=== PATIENT | male | born 1970 | race Caucasian/White ===

== ENCOUNTER 2019-11-02 05:30 | Inpatient (IN) | payer SELFPAY ==
[~2019-11-02] VITALS: Ht 165.1 cm; Wt 85.3 kg
[2019-11-02] VITALS (28 sets, daily range): BP systolic 110–155; BP diastolic 55–81
[2019-11-02] MEDS ORDERED: ATROPINE 0.5 MG/5 ML DISP.SYRINGE. ONE (05:55)
[2019-11-02] MEDS ORDERED: PHENYLEPHRINE 10 MG/ML VIAL. ONE (05:55)
[2019-11-02] MEDS ORDERED: TIROFIBAN 5MG -0.9% NS 100 ML IV ONE (05:58)
[2019-11-02] MEDS: TIROFIBAN 5MG -0.9% NS 100 ML IV PRN ×4 (06:03→20:36)
[2019-11-02] MEDS ORDERED: ONDANSETRON PF 4 MG/2 ML VIAL. ONE (06:12)
[2019-11-02] MEDS ORDERED: HEPARIN for IV BOLUS 10,000 UNIT/10 ML VIAL. IV ONE (06:15)
[2019-11-02] MEDS ORDERED: VERAPAMIL 5 MG/2 ML VIAL. IART ONE (06:15)
[2019-11-02] MEDS ORDERED: MIDAZOLAM HCL/PF 2 MG/2 ML VIAL. IV ONE (06:15)
[2019-11-02] MEDS ORDERED: IODIXANOL 320 MG/ML 100 ML VIAL. IART ONE (06:15)
[2019-11-02] MEDS ORDERED: LIDOCAINE 1% Multi-Dose 20 ML VIAL. INJ ONE (06:15)
[2019-11-02] MEDS ORDERED: HEPARIN for IV BOLUS 10,000 UNIT/10 ML VIAL. IART ONE (06:15)
[2019-11-02] MEDS ORDERED: NITROGLYCERIN 200 MCG/2 ML SYRINGE FOR CATH/VASC LAB. IART ONE ×2 (06:15→06:30)
[2019-11-02] MEDS ORDERED: fentaNYL PF VIAL 100 MCG/2 ML VIAL IV ONE ×2 (06:15→06:45)
[2019-11-02] MEDS ORDERED: NITROGLYCERIN 200 MCG/2 ML SYRINGE FOR CATH/VASC LAB. ONE (06:22)
[2019-11-02] MEDS ORDERED: IODIXANOL 320 MG/ML 100 ML VIAL. ONE (06:25)
[2019-11-02] MEDS ORDERED: ONDANSETRON PF 4 MG/2 ML VIAL. IVP ONE (06:30)
[2019-11-02] MEDS ORDERED: fentaNYL PF VIAL 100 MCG/2 ML VIAL ONE (06:35)
[2019-11-02] MEDS ORDERED: PRASUGREL 10 MG TABLET. PO ONE (06:45)
[2019-11-02] MEDS ORDERED: PRASUGREL 10 MG TABLET. ONE (06:52)
--- NOTE | 2019-11-02 07:15 | NUR ---
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 On aggrastat and rec'd effient there. Pt A/O denies any CP or SOA. VSSx HR 60. Occ PVC. No family here. Rt TRband intact 15cc. Sm amt ooze noticed by tutorial laboratory supervisor so air increased to 15cc. Will cont TRband protocol.
[2019-11-02] MEDS ORDERED: OMEP20CA16 PO (07:30)
[2019-11-02] MEDS ORDERED: ACETAMINOPHEN 325 MG TABLET. PO PRN ×2 (07:45→10:15)
[2019-11-02] MEDS ORDERED: ONDANSETRON PF 4 MG/2 ML VIAL. IV PRN (07:45)
--- NOTE | 2019-11-02 09:05 | PDOC1 ---
History and Physical Date of Admission Date of Admission DATE: 11/02/19 TIME: 09:04 Identification/Chief Complaint Chief Complaint SEEN in er at [facility] with acute STEMI, transferred here for definitive care . presented with 24 hr hx retrosternal severe angina with radiation to left shoulder., associated with severe nausea, cath here shows 2 vessel critical CAD Past Medical History Cardiovascular: No pertinent hx GI: No pertinent hx Heme/Onc: No pertinent hx Hepatobiliary: No pertinent hx Psych: No pertinent hx Rheumatologic: No pertinent hx Infectious disease: No pertinent hx ENT: No pertinent hx Endocrine: No pertinent hx Dermatology: No pertinent hx Family History Family History: Alcohol Abuse, Cancer Family History: Parent (FATHER DAD LARYNGEAL CANCER) Social History Smoke: No ALCOHOL: heavy Drugs: Marijuana (3 BEERS ON AVERAGE A DAY ) Current Medications Current Medications Current Medications Phenylephrine HCl (Wilfredo-Synephrine Inj) 10 mg STK-MED ONCE .ROUTE ; Start 11/02/19 at 05:55; Stop 11/02/19 at 05:55; Status DC Atropine Sulfate (ATROPINE 0.5mg SYRINGE) 0.5 mg STK-MED ONCE .ROUTE ; Start 11/02/19 at 05:55; Stop 11/02/19 at 05:55; Status DC Tirofiban/Sodium Chloride 100 ml @ As Directed STK-MED ONCE IV ; Start 11/02/19 at 05:58; Stop 11/02/19 at 05:59; Status DC Nitroglycerin (Nitroglycerin) 200 mcg 1X ONCE IART Last administered on 11/02/19at 06:15; Start 11/02/19 at 06:15; Stop 11/02/19 at 06:16; Status DC Verapamil HCl (Verapamil) 2.5 mg 1X ONCE IART Last administered on 11/02/19at 06:15; Start 11/02/19 at 06:15; Stop 11/02/19 at 06:16; Status DC Heparin Sodium (Porcine) (Heparin Sodium) 2,500 unit 1X ONCE IART Last adminis tered on 11/02/19at 06:15; Start 11/02/19 at 06:15; Stop 11/02/19 at 06:16; Status DC Heparin Sodium/ Sodium Chloride (HEPARIN for ARTERIAL LINE FLUSH) 1,000 unit 1X ONCE IART Last administered on 11/02/19at 06:15; Start 11/02/19 at 06:15; Stop 11/02/19 at 06:16; Status DC Heparin Sodium/ Sodium Chloride (HEPARIN for ARTERIAL LINE FLUSH) 1,000 unit 1X ONCE IART Last administered on 11/02/19at 06:15; Start 11/02/19 at 06:15; Stop 11/02/19 at 06:16; Status DC Midazolam HCl (Versed) 2 mg 1X ONCE IV Last administered on 11/02/19at 06:15; Start 11/02/19 at 06:15; Stop 11/02/19 at 06:16; Status DC Fentanyl Citrate (Fentanyl 2ml Vial) 100 mcg 1X ONCE IV Last administered on 11/02/19at 06:15; Start 11/02/19 at 06:15; Stop 11/02/19 at 06:16; Status DC Iodixanol (Visipaque 320) 100 ml 1X ONCE IART Last administered on 11/02/19at 06:15; Start 11/02/19 at 06:15; Stop 11/02/19 at 06:16; Status DC Lidocaine HCl (Lidocaine 1% 20ml Vial) 20 ml 1X ONCE INJ Last administered on 11/02/19at 06:15; Start 11/02/19 at 06:15; Stop 11/02/19 at 06:16; Status DC Ondansetron HCl (Zofran) 4 mg STK-MED ONCE .ROUTE ; Start 11/02/19 at 06:12; Stop 11/02/19 at 06:12; Status DC Heparin Sodium (Porcine) (Heparin Sodium) 2,000 unit 1X ONCE IV Last administered on 11/02/19at 06:15; Start 11/02/19 at 06:15; Stop 11/02/19 at 06:21; Status DC Tirofiban/Sodium Chloride 100 ml @ 0 mls/hr CONT PRN IV PER PROTOCOL Last administered on 11/02/19at 08:16; Start 11/02/19 at 06:15; Stop 11/03/19 at 00:14 Nitroglycerin (Nitroglycerin) 200 mcg STK-MED ONCE .ROUTE ; Start 11/02/19 at 06:22; Stop 11/02/19 at 06:22; Status DC Nitroglycerin (Nitroglycerin) 200 mcg 1X ONCE IART Last administered on 11/02/19at 06:27; Start 11/02/19 at 06:30; Stop 11/02/19 at 06:31; Status DC Iodixanol (Visipaque 320) 100 ml STK-MED ONCE .ROUTE ; Start 11/02/19 at 06:25; Stop 11/02/19 at 06:25; Status DC Ondansetron HCl (Zofran) 4 mg 1X ONCE IVP Last administered on 11/02/19at 06:30; Start 11/02/19 at 06:30; Stop 11/02/19 at 06:31; Status DC Fentanyl Citrate (Fentanyl 2ml Vial) 100 mcg STK-MED ONCE .ROUTE ; Start 11/02/19 at 06:35; Stop 11/02/19 at 06:35; Status DC Fentanyl Citrate (Fentanyl 2ml Vial) 100 mcg 1X ONCE IV Last administered on 11/02/19at 06:45; Start 11/02/19 at 06:45; Stop 11/02/19 at 06:46; Status DC Prasugrel (Effient) 60 mg 1X ONCE PO Last administered on 11/02/19at 07:00; Start 11/02/19 at 06:45; Stop 11/02/19 at 06:50; Status DC Prasugrel (Effient) 10 mg STK-MED ONCE .ROUTE ; Start 11/02/19 at 06:52; Stop 11/02/19 at 06:52; Status DC Ondansetron HCl (Zofran) 4 mg PRN Q4HRS PRN IV NAUSEA/VOMITING; Start 11/02/19 at 07:45 Acetaminophen (Tylenol) 650 mg PRN Q4HRS PRN PO TEMP OVER 100.4F OR MILD PAIN; Start 11/02/19 at 07:45 Active Scripts Active Reported Omeprazole 20 Mg Capsule. 1 Cap PO DAILY Allergies Allergies: Coded Allergies: No Known Drug Allergies (Unverified , 11/02/19) ROS Review of System 14 pt ros otherwise neg General: No: Chills, Night Sweats, Fatigue, Malaise, Appetite, Other PSYCHOLOGICAL ROS: No: Anxiety, Behavioral Disorder, Concentration difficultie, Decreased libido, Depression, Disorientation, Hallucinations, Hostility, Irri tablity, Memory difficulties, Mood Swings, Obsessive thoughts, Physical abuse, Sexual abuse, Sleep disturbances, Suicidal ideation, Other Eyes: No Blurry vision, No Decreased vision, No Double vision, No Dry eyes, No Excessive tearing, No Eye Pain, No Itchy Eyes, No Loss of vision, No Photophobia, No Scotomata, No Uses contacts, No Uses glasses, No Other HEENT: No: Heacaches, Visual Changes, Hearing change, Nasal congestion, Nasal discharge, Oral lesions, Sinus pain, Sore Throat, Epistaxis, Sneezing, Snoring, Tinnitus, Vertigo, Vocal changes, Other ALLERGY AND IMMUNOLOGY: No: Hives, Insect Bite Sensitivity, Itchy/Watery Eyes, Nasal Congestion, Post Nasal Drip, Seasonal Allergies, Other Hematological and Lymphatic: No: Bleeding Problems, Blood Clots, Blood Transfusions, Brusing, Night Sweats, Pallor, Swollen Lymph Nodes, Other ENDOCRINE: No: Breast Changes, Galactorrhea, Hair Pattern Changes, Hot Flashes, Malaise/lethargy, Mood Swings, Palpitations, Polydipsia/polyuria, Skin Changes, Temperature Intolerance, Unexpected Weight Changes, Other Breast: No New/Changing Breast Lumps, No Nipple changes, No Nipple discharge, No Other Respiratory: No: Cough, Hemoptysis, Orthopnea, Pleuritic Pain, Shortness of breath, SOB with excertion, Sputum Changes, Stridor, Tachypnea, Wheezing, Other Cardiovascular: yes Chest Pain; No Palpitations, No Orthopnea, No Paroxysmal Noc. Dyspnea, No Edema, No Lt Headedness, No Other Gastrointestinal: Yes Nausea; No Vomiting, No Abdominal Pain, No Diarrhea, No Constipation, No Melena, No Hematochezia, No Other Genitourinary: No Dysuria, No Frequency, No Incontinence, No Hematuria, No Retention, No Discharge, No Urgency, No Pain, No Flank Pain, No Other, No , No , No , No , No , No , No Musculoskeletal: No Gait Disturbance, No Joint Pain, No Joint Stiffness, No Joint Swelling, No Muscle Pain, No Muscular Weakness, No Pain In:, No Swelling In:, No Other Neurological: No Behavorial Changes, No Bowel/Bladder ControlChng, No Confusion, No Dizziness, No Gait Disturbance, No Headaches, No Impaired Coord/balance, No Memory Loss, No Numbness/Tingling, No Seizures, No Speech Problems, No Tremors, No Visual Changes, No Weakness, No Other Skin: No Dry Skin, No Eczema, No Hair Changes, No Lumps, No Mole Changes, No Mottling, No Nail Changes, No Pruritus, No Rash, No Skin Lesion Changes, No Other, No Acne Physical Exam General: Alert, Oriented X3, Cooperative, No acute distress HEENT: PERRLA Lungs: Clear to auscultation, Normal air movement Heart: S1S2, RRR, no thrills, no gallops, no murmurs Breasts: Not examined Abdomen: Normal bowel sounds, Soft, No tenderness Rectal Exam: not examined PELVIC: Examination not indicated Extremities: No cyanosis, No edema Neuro: Normal speech, Strength at 5/5 X4 ext, Sensation intact, Cranial nerves 3-12 NL Psych/Mental Status: Mental status NL, Mood NL Vitals Vitals Vital Signs Date Time Temp Pulse Resp B/P (MAP) Pulse Ox O2 Delivery O2 Flow Rate FiO2 11/02/19 07:05 61 21 100 Nasal Cannula 2.0 VTE Prophylaxis Ordered VTE Prophylaxis Devices: No VTE Pharmacological Prophylaxi: Yes Assessment/Plan Assessment/Plan impression Acute inferior wall FL, STEMI OM1 normal angiographic appearance. RCA MID 100% occlusion. RPDA ostial 80% stenosis. MORBID OBESITY THC ABUSE Alcohol abuse PLAN ADMIT ICU BED [facility], Coronary angiography Complex PCI of the mid to distal RCA and PDA with aspiration thrombectomy consult cardiology cbc, comp, lipid panel, troponin i [facility] protocol heparin drip effient URINE DRUG SCREEN 34 min cc time Justicifation of Admission Dx: Justifications for Admission: Justification of Admission Dx: Yes FL: Acute NSTEMI ARTURO SOUSA MD Nov 02, 2019 09:05
--- NOTE | 2019-11-02 09:10 | CARD ---
MR#: [id number] Date of Study: 11/02/2019 Ordering Physician: MAURY HERNANDEZ, Referring Physician: MAURY HERNANDEZ, Tech: RT Silvino (R) ROD APPROVED REPORT Technologist: Nga Munguia RT (R) ROD Nurse: Procedure(s) performed: FLUORO TIME: 17.1 MIN DOSE: 252 Gycm2 Contrast: 172ml Sedation Time: 75 MIN [facility], Coronary angiography Complex PCI of the mid to distal RCA and PDA with aspiration thrombectomy HISTORY : The patient is a 48 year-old male with a history of . INDICATION The indication(s) include : STEMI . [facility] Clinical Frailty Scale [facility] Clinical Frailty Scale: Managing Well Heart Failure Heart Failure: Yes If Yes, Newly Diagnosed: Yes If Yes, HF Type: Diastolic Systolic If Yes, NYHA Class: Class III PROCEDURE NARRATIVE INFORMED CONSENT: After explaining the risks and benefits of the procedure and alternatives, informed consent was obtained. The patient was brought emergently to the cardiac catheterization lab. A timeout was performed confi rming the patient's name, date of , procedure, and site of procedure. All necessary personnel w ere wearing the appropriate protective equipment and radiation monitor devices. (See nursing notes for medications administered). ACCESS: The right wrist was sterilely prepped and draped in the usual fashion. The right wrist was infiltrat ed with 1 mL of 2% lidocaine for subcutaneous anesthesia. A 6 Luxembourger Terumo glide sheath was inserte d into the right radial artery without difficulty. CORONARY ANGIOGRAPHY: Right and left coronary angiography was performed using a 6Fr TIG 4.0 catheter and JR4 catheter. Le ft ventricular end diastolic pressure was obtained with a JR4 catheter and pullback was performed. A ll catheter exchanges and advancements were performed over a guidewire. CLOSURE: At case completion the right radial sheath was removed and a Terumo radial band was applied with 13 m l of air. COMPLICATIONS: The patient tolerated the procedure well and there were no immediate complications. FINDINGS: HEMODYNAMICS: LVEDP 30 mm Hg No gradient on LV to aortic pullback. AO: 140/80 LEFT VENTRICULOGRAM: Deferred. l CORONARY ANGIOGRAPHY: LM is a large caliber vessel with normal angiographic appearance. LAD is a moderate caliber vessel with a mid and distal 50% stenosis. D1 is a moderate caliber vessel with mild luminal irregularities. LCx is a moderate caliber non-dominant vessel with mild luminal irregularities. OM1 is a moderate caliber vessel with normal angiographic appearance. RCA is a large caliber dominant vessel with a a mid 100% occlusion. RPDA is a moderate caliber vessel with an ostial 80% stenosis. INTERVENTIONAL TECHNIQUE: Heparin and tirofiban were used for anticoagulation. Through a 6 Luxembourger JR4 guide catheter a pro-isabella er wire was used to traverse the mid RCA occlusion. Balloon angioplasty was performed with a 2.5 x 1 5 mm balloon and subsequently aspiration thrombectomy was performed due to significant thrombus burde n. The RCA was then angioplastied with a 3.0 x 20 mm balloon. The RCA was then stented from the PDA with a 3.0 x 18 mm and then a 4.0 x 38 mm resolute drug-eluting stents. The overlap segment was pos tdilated with a 3.75 noncompliant balloon. There was excellent stent expansion with SHELLY-3 flow. Th e patient tolerated procedure well and there were no acute complications. SHELLY Flow SHELLY Flow (Pre-Intervention): SHELLY-0 SHELLY Flow (Post-Intervention): SHELLY-3 SHELLY Flow SHELLY Flow (Pre-Intervention): SHELLY-0 SHELLY Flow (Post-Intervention): SHELLY-3 Conclusion 1. Subacute presentation of a inferior posterior ST elevation DE 2. Successful complex PCI of the RCA with implantation of overlapping 4.0 x 38 and 3.0 x 18 mm resol sherlyn drug-eluting stents. Recommendations Aspirin 81 mg daily Prasugrel 10 mg daily High-dose statin therapy Cardiac rehab referral. Signed by : Maury Hernandez, Electronically Approved : 11/02/2019 09:09:25
[2019-11-02] MEDS ORDERED: PROCHLORPERAZINE 25 MG SUPP.RECT. PR PRN (10:15)
[2019-11-02] MEDS ORDERED: oxyCODONE IR 5 MG TABLET PO PRN (10:15)
[2019-11-02] MEDS ORDERED: HYDROcodone/APAP 5/325MG 1 TAB TABLET PO PRN (10:15)
[2019-11-02] MEDS ORDERED: MAG HYDROX/ALUMINUM HYD/SIMETH 30 ML ORAL.SUSP PO PRN (10:15)
[2019-11-02] MEDS ORDERED: ZOLPIDEM 5 MG TABLET. PO PRN (10:15)
[2019-11-02] MEDS ORDERED: HALOPERIDOL LACTATE 5 MG/ML VIAL. IVP PRN (10:15)
[2019-11-02] MEDS ORDERED: 0.9 % SODIUM CHLORIDE 10 ML DISP.SYRIN. IV PRN (10:15)
[2019-11-02] MEDS ORDERED: CALCIUM CARBONATE 500 MG TAB.CHEW PO PRN (10:15)
[2019-11-02] MEDS ORDERED: ONDANSETRON PF 4 MG/2 ML VIAL. IVP PRN (10:15)
[2019-11-02] MEDS ORDERED: MAGNESIUM HYDROXIDE 2,400 MG/30 ML ORAL.SUSP. PO PRN (10:15)
[2019-11-02] MEDS ORDERED: BISACODYL 10 MG SUPP.RECT. PR PRN (10:15)
[2019-11-02 10:29] LABS: BASO % 1 % (0-3); EOS % 0 % (0-3); HEMATOCRIT 43.5 % (39.0-53.0); HEMOGLOBIN 15.3 g/dL (13.0-17.5); LYMPH % 10 % (24-48); MEAN CORPUSCULAR HEMOGLOBIN 34 pg (25-35); MEAN CORPUSCULAR HGB CONC 35 g/dL (31-37); MEAN CORPUSCULAR VOLUME 98 fL (79-100); MONO % 11 % (0-9); NEUT # 7.3 x10^3/uL (1.8-7.7); NEUT % 79 % (31-73); PLATELET COUNT 162 x10^3/uL (140-400); RED BLOOD COUNT 4.44 x10^6/uL (4.30-5.70); RED CELL DISTRIBUTION WIDTH 13.9 % (11.5-14.5); WHITE BLOOD COUNT 9.3 x10^3/uL (4.0-11.0)
[2019-11-02 10:44] LABS: ALBUMIN 3.3 g/dL (3.4-5.0); CALCIUM 8.1 mg/dL (8.5-10.1); CREATININE 0.9 mg/dL (0.7-1.3); GFR 90.4; POTASSIUM 3.7 mmol/L (3.5-5.1); TOTAL BILIRUBIN 1.9 mg/dL (0.2-1.0); TOTAL PROTEIN 6.5 g/dL (6.4-8.2)
[2019-11-02 10:47] LABS: CHOLESTEROL/HDL RATIO 3.3
[2019-11-02] MEDS: FOLIC ACID 1 MG TABLET. PO SCH (12:13)
[2019-11-02] MEDS: MULTIVITAMIN with MINERAL TABLET. PO SCH (12:13)
[2019-11-02] MEDS: THIAMINE 100 MG TABLET. PO SCH (12:14)
--- NOTE | 2019-11-02 16:02 | NUR ---
SS following for discharge planning. SS reviewed pt chart and discussed with pt RN. Pt is from home and is currently requiring oxygen. SS will continue to follow for discharge planning.
--- NOTE | 2019-11-02 16:19 | CARD ---
MR#: [id number] Date of Study: 11/02/2019 Ordering Physician: DK MYLES, Referring Physician: DK MYLES, Tech: Rafia Estes APPROVED REPORT EXAM: Two-dimensional and M-mode echocardiogram with Doppler and color Doppler. Other Information Quality : AverageHR: 73bpm INDICATION STEMI 2D DIMENSIONS RVDd4.2 (2.9-3.5cm)Left Atrium(2D)3.6 (1.6-4.0cm) IVSd1.2 (0.7-1.1cm)Aortic Root(2D)3.2 (2.0-3.7cm) LVDd4.5 (3.9-5.9cm)LVOT Diameter2.2 (1.8-2.4cm) PWd1.0 (0.7-1.1cm)LVDs3.3 (2.5-4.0cm) FS (%) 26.0 %SV47.5 ml LVEF(%)51.2 (>50%) Aortic Valve AoV Peak Cas.165.5cm/sAoV VTI27.6cm AO Peak GR.11.0mmHgLVOT VTI 19.83cm AO Mean GR.6mmHg Mitral Valve MV E Goyffddy28.2cm/sMV E Peak Gr.4mmHg MV DECEL [id number] A Rzovjiok69.4cm/s MV E Mean Gr.2mmHgE/A Ratio1.3 TDI Lateral E' P. V10.94cm/sMedial E' P. V9.72cm/s E/Lateral E'8.2E/Medial E'9.3 Tricuspid Valve TR P. [id number]/sRAP [id number] TR Peak Gr.[id number] Pulmonary Vein S1 Cpptdhtg51.1cm/sS2 Vzqvnkek09.70cm/s D2 Jbhxouoi63.7cm/sPVa [id number] LEFT VENTRICLE The left ventricle is normal size. There is normal left ventricular wall thickness. The left ventricu lar systolic function is normal and the ejection fraction is within normal range. The Ejection Fracti on is 50-55%. There is normal LV segmental wall motion. Transmitral Doppler flow pattern is Grade II- pseudonormal filling dynamics. RIGHT VENTRICLE The right ventricle is normal size. There is normal right ventricular wall thickness. The right ventr icular systolic function is normal. ATRIA The left atrium size is normal. The right atrium size is normal. The interatrial septum is intact wit h no evidence for an atrial septal defect or patent foramen ovale as noted on 2-D or Doppler imaging. AORTIC VALVE The aortic valve is normal in structure and function. Doppler and Color Flow revealed no significant aortic regurgitation. There is no significant aortic valvular stenosis. Calculated aortic valve area is 2.66 cm2 with maximum pressure gradient of 12 mmHg and mean pressure gradient of 6 mmHg. MITRAL VALVE The mitral valve is normal in structure and function. There is no evidence of mitral valve prolapse. There is no mitral valve stenosis. Doppler and Color-flow revealed trace mitral regurgitation. TRICUSPID VALVE The tricuspid valve is normal in structure and function. Doppler and Color Flow revealed trace tricus pid regurgitation with an estimated PAP of 34 mmHg. There is no tricuspid valve stenosis. PULMONIC VALVE The pulmonary valve is normal in structure and function. Doppler and Color Flow revealed no pulmonic valvular regurgitation. GREAT VESSELS The aortic root is normal in size. The IVC is normal in size and collapses >50% with inspiration. PERICARDIAL EFFUSION There is no evidence of significant pericardial effusion. Critical Notification Critical Value: No <Conclusion> The left ventricle is normal size. The left ventricular systolic function is normal and the ejection fraction is within normal range. The Ejection Fraction is 50-55%. Doppler and Color Flow revealed no significant aortic regurgitation. There is no significant aortic valvular stenosis. Calculated aortic valve area is 2.66 cm2 with maximum pressure gradient of 12 mmHg and mean pressure gradient of 6 mmHg. Doppler and Color-flow revealed trace mitral regurgitation. Doppler and Color Flow revealed trace tricuspid regurgitation with an estimated PAP of 34 mmHg. Signed by : Moses Colvin MD Electronically Approved : 11/02/2019 16:18:23
[2019-11-02 17:15] LABS: BARBITURATES NEG (NEG); BENZODIAZEPINES POS (NEG); CANNABINOIDS POS (NEG); COCAINE POS (NEG); METHADONE NEG (NEG); OPIATES POS (NEG); PHENCYCLIDINE NEG (NEG)
[2019-11-02 17:22] LABS: AMPHETAMINE/METHAMPHETAMINE NEG (NEG)
[2019-11-02] MEDS: FAMOTIDINE 20 MG TABLET. PO SCH (20:37)
[2019-11-02] MEDS: ATORVASTATIN CALCIUM 20 MG TABLET PO SCH (20:37)
[2019-11-02] MEDS: DOCUSATE SODIUM 100 MG CAPSULE. PO SCH (20:38)
[2019-11-02] MEDS: METOPROLOL TART IMMED RELEASE 25 MG TABLET. PO SCH (20:38)
[2019-11-03 00:08] LABS: HEMOGLOBIN A1C 5.3 % (4.8-5.6)
[2019-11-03 02:38] VITALS: BP 125/67
[2019-11-03 05:27] LABS: BASO % 0 % (0-3); EOS % 0 % (0-3); HEMOGLOBIN 14.6 g/dL (13.0-17.5); LYMPH # 1.6 x10^3/uL (1.0-4.8); LYMPH % 21 % (24-48); MEAN CORPUSCULAR HEMOGLOBIN 35 pg (25-35); MEAN CORPUSCULAR HGB CONC 35 g/dL (31-37); MEAN CORPUSCULAR VOLUME 100 fL (79-100); MONO # 0.8 x10^3/uL (0.0-1.1); MONO % 10 % (0-9); NEUT # 5.3 x10^3/uL (1.8-7.7); NEUT % 69 % (31-73); PLATELET COUNT 156 x10^3/uL (140-400); RED BLOOD COUNT 4.21 x10^6/uL (4.30-5.70); RED CELL DISTRIBUTION WIDTH 14.1 % (11.5-14.5); WHITE BLOOD COUNT 7.8 x10^3/uL (4.0-11.0)
[2019-11-03 05:48] LABS: ALBUMIN/GLOBULIN RATIO 0.8 (1.0-1.7); CALCIUM 8.3 mg/dL (8.5-10.1); CREATININE 1.1 mg/dL (0.7-1.3); GFR 71.8; POTASSIUM 3.5 mmol/L (3.5-5.1); TOTAL BILIRUBIN 1.2 mg/dL (0.2-1.0); TOTAL PROTEIN 6.7 g/dL (6.4-8.2)
[2019-11-03 07:00] VITALS: BP 119/70
--- NOTE | 2019-11-03 07:31 | PDOC2 ---
CARDIOLOGY CONSULT NOTE CHIEF COMPLAINT: Late entry for 11/02/2019 Chest pain HPI: 48 y.o male presented with chest pain. He had chest pain 2 days prior to admission. At [facility] noted to have 2mm inferior LOLLY. medical laboratory technologist team activated. Patient taken directly to analytical lab technician after informed consent. Patient otherwise, denied any new issues. PMHX: No significant PMHx SOCHX: +marijuana and alcohol use FAMHX: NC CURRENT MEDS: Current Medications Medications (Trade) Dose Ordered Sig/Roselyn Route PRN Reason Start Time Stop Time Status Last Admin Dose Admin Multivitamins (Thera M Plus) 1 tab DAILY PO 11/02/19 12:00 11/02/19 12:13 Folic Acid (Folic Acid) 1 mg DAILY PO 11/02/19 12:00 11/02/19 12:13 Thiamine Mononitrate (Vitamin B-1) 100 mg DAILY PO 11/02/19 12:00 11/02/19 12:14 Famotidine (Pepcid) 20 mg BID PO 11/02/19 21:00 11/02/19 20:37 Docusate Sodium (Colace) 100 mg BID PO 11/02/19 21:00 11/02/19 20:38 Atorvastatin Calcium (Lipitor) 20 mg QHS PO 11/02/19 21:00 11/02/19 20:37 Metoprolol Tartrate (Lopressor) 12.5 mg BID PO 11/02/19 21:00 11/02/19 20:38 ALLERGIES: Allergies Coded Allergies Type Severity Reaction Last Updated Verified No Known Drug Allergies 11/02/19 No ROS: Negative unless noted above in HPI PHYSICAL EXAM: Vital Signs/I&O: Vital Signs Date Time Temp Pulse Resp B/P (MAP) Pulse Ox O2 Delivery O2 Flow Rate FiO2 11/03/19 02:38 98.9 80 18 125/67 (86) 98 Room Air 2.0 98.9 I & O 11/02/19 11/02/19 11/03/19 15:00 23:00 07:00 Intake Total 716 ml 480 ml Output Total 800 ml 800 ml Balance -84 ml -320 ml Physical Exam: GEN.: No apparent distress. Alert and oriented. HEENT: Head is normocephalic, atraumatic NECK: Supple. LUNGS: Clear to auscultation. HEART: RRR, S1, S2 present. Peripheral pulses intact ABDOMEN: Soft, nontender. Positive bowel sounds. EXTREMITIES: Without any cyanosis. NEUROLOGIC: Normal speech, normal tone PSYCHIATRIC: Normal affect, normal mood. SKIN: No ulcerations DIAGNOSTIC TESTING: EKG with inferior LOLLY Cath with 2 V CAD s/p RCA PCI Lab Laboratory Tests Test 11/02/19 10:10 11/02/19 16:00 11/03/19 05:00 White Blood Count 9.3 x10^3/uL (4.0-11.0) 7.8 x10^3/uL (4.0-11.0) Red Blood Count 4.44 x10^6/uL (4.30-5.70) 4.21 x10^6/uL (4.30-5.70) L Hemoglobin 15.3 g/dL (13.0-17.5) 14.6 g/dL (13.0-17.5) Hematocrit 43.5 % (39.0-53.0) 42.0 % (39.0-53.0) Mean Corpuscular Volume 98 fL (79-100) 100 fL (79-100) Mean Corpuscular Hemoglobin 34 pg (25-35) 35 pg (25-35) Mean Corpuscular Hemoglobin Concent 35 g/dL (31-37) 35 g/dL (31-37) Red Cell Distribution Width 13.9 % (11.5-14.5) 14.1 % (11.5-14.5) Platelet Count 162 x10^3/uL (140-400) 156 x10^3/uL (140-400) Neutrophils (%) (Auto) 79 % (31-73) H 69 % (31-73) Lymphocytes (%) (Auto) 10 % (24-48) L 21 % (24-48) L Monocytes (%) (Auto) 11 % (0-9) H 10 % (0-9) H Eosinophils (%) (Auto) 0 % (0-3) 0 % (0-3) Basophils (%) (Auto) 1 % (0-3) 0 % (0-3) Neutrophils # (Auto) 7.3 x10^3/uL (1.8-7.7) 5.3 x10^3/uL (1.8-7.7) Lymphocytes # (Auto) 1.0 x10^3/uL (1.0-4.8) 1.6 x10^3/uL (1.0-4.8) Monocytes # (Auto) 1.0 x10^3/uL (0.0-1.1) 0.8 x10^3/uL (0.0-1.1) Eosinophils # (Auto) 0.0 x10^3/uL (0.0-0.7) 0.0 x10^3/uL (0.0-0.7) Basophils # (Auto) 0.0 x10^3/uL (0.0-0.2) 0.0 x10^3/uL (0.0-0.2) Sodium Level 136 mmol/L (136-145) 136 mmol/L (136-145) Potassium Level 3.7 mmol/L (3.5-5.1) 3.5 mmol/L (3.5-5.1) Chloride Level 97 mmol/L (98-107) L 98 mmol/L (98-107) Carbon Dioxide Level 25 mmol/L (21-32) 30 mmol/L (21-32) Anion Gap 14 (6-14) 8 (6-14) Blood Urea Nitrogen 10 mg/dL (8-26) 11 mg/dL (8-26) Creatinine 0.9 mg/dL (0.7-1.3) 1.1 mg/dL (0.7-1.3) Estimated GFR (Cockcroft-Gault) 90.4 71.8 BUN/Creatinine Ratio 11 (6-20) 10 (6-20) Glucose Level 122 mg/dL (70-99) H 121 mg/dL (70-99) H Hemoglobin A1c 5.3 % (4.8-5.6) Calcium Level 8.1 mg/dL (8.5-10.1) L 8.3 mg/dL (8.5-10.1) L Total Bilirubin 1.9 mg/dL (0.2-1.0) H 1.2 mg/dL (0.2-1.0) H Aspartate Amino Transf (AST/SGOT) 679 U/L (15-37) H 245 U/L (15-37) H Alkaline Phosphatase 73 U/L (46-116) 66 U/L (46-116) Creatine Kinase 3256 U/L (39-308) H Total Protein 6.5 g/dL (6.4-8.2) 6.7 g/dL (6.4-8.2) Albumin 3.3 g/dL (3.4-5.0) L 3.0 g/dL (3.4-5.0) L Albumin/Globulin Ratio 1.0 (1.0-1.7) 0.8 (1.0-1.7) L Cholesterol Level 229 mg/dL (0-200) H LDL Cholesterol, Calculated 131 mg/dL (0-100) H VLDL Cholesterol, Calculated 29 mg/dL (0-40) Non-HDL Cholesterol Calculated 160 mg/dL (0-129) H Cholesterol/HDL Ratio 3.3 Thyroid Stimulating Hormone (TSH) 2.471 uIU/mL (0.358-3.74) Urine Opiates Screen Pos (NEG) Urine Methadone Screen Neg (NEG) Urine Barbiturates Neg (NEG) Urine Phencyclidine Screen Neg (NEG) Urine Amphetamine/Methamphetamine Neg (NEG) Urine Benzodiazepines Screen Pos (NEG) Urine Cocaine Screen Pos (NEG) Urine Cannabinoids Screen Pos (NEG) Urine Ethyl Alcohol Neg (NEG) Laboratory Tests 11/03/19 05:00 ASSESSMENT: 1. Inferior STEMI s/p successful RCA PCI with overlapping stents. 2. Acute transaminities 3. Cocaine + PLAN: 1. Aspirin and Prasugrel 2. Defer statins due to acute transaminitis, consider outpt 3. Discussed cessation of illegal substances. Ok to discharge late tuesday evening if no acute events. Thanks. MAURY CARR MD Nov 03, 2019 07:31
[2019-11-03] MEDS: PRASUGREL 10 MG TABLET. PO SCH (08:24)
[2019-11-03] MEDS: ASPIRIN ENTERIC COATED 81 MG TABLET.DR. PO SCH (08:24)
[2019-11-03] MEDS: FAMOTIDINE 20 MG TABLET. PO SCH ×2 (08:24→20:58)
[2019-11-03] MEDS: FOLIC ACID 1 MG TABLET. PO SCH (08:24)
[2019-11-03] MEDS: DOCUSATE SODIUM 100 MG CAPSULE. PO SCH ×2 (08:25→20:58)
[2019-11-03] MEDS: MULTIVITAMIN with MINERAL TABLET. PO SCH (08:25)
[2019-11-03] MEDS: METOPROLOL TART IMMED RELEASE 25 MG TABLET. PO SCH ×2 (08:25→20:59)
[2019-11-03] MEDS: THIAMINE 100 MG TABLET. PO SCH (08:26)
[2019-11-03] MEDS: ELECTROLYTE (ICU) PROTOCOL. MC SCH (09:00)
--- NOTE | 2019-11-03 09:33 | PDOC ---
PROGRESS NOTES History of Present Illness History of Present Illness VTE Prophylaxis Ordered VTE Prophylaxis Devices: No VTE Pharmacological Prophylaxi: Yes IMPRESSION Assessment/Plan impression Acute inferior wall AZ, STEMI OM1 normal angiographic appearance. RCA MID 100% occlusion. RPDA ostial 80% stenosis. MORBID OBESITY THC ABUSE Alcohol abuse positive urine drug screen for cocaine TRANSAMINITIS PLAN ADMIT ICU BED [facility], Coronary angiography Complex PCI of the mid to distal RCA and PDA with aspiration thrombectomy consult cardiology cbc, comp, lipid panel, troponin i CIWA protocol heparin drip effient URINE DRUG SCREEN pos THC, Cocaine out patient substance abuse therapy CA Okay for discharge from cardiac standpoint. ROBIN SIMMS, GI CONSULT 11/02 ACUTE DX HEPATITIS PANEL CXR 35 MIN CC TIME Vitals Vitals Vital Signs Date Time Temp Pulse Resp B/P (MAP) Pulse Ox O2 Delivery O2 Flow Rate FiO2 11/03/19 08:25 75 119/70 11/03/19 08:00 Room Air 11/03/19 07:00 98.9 98 98.9 11/03/19 02:38 18 2.0 Physical Exam General: Alert, Oriented X3, Cooperative, No acute distress Heart: Regular rate Lungs: Clear Abdomen: Normal bowel sounds, Soft, No tenderness Extremities: No cyanosis, No edema Skin: No significant lesion Labs LABS Laboratory Tests Test 11/02/19 10:10 11/02/19 16:00 11/03/19 05:00 White Blood Count 9.3 x10^3/uL (4.0-11.0) 7.8 x10^3/uL (4.0-11.0) Red Blood Count 4.44 x10^6/uL (4.30-5.70) 4.21 x10^6/uL (4.30-5.70) Hemoglobin 15.3 g/dL (13.0-17.5) 14.6 g/dL (13.0-17.5) Hematocrit 43.5 % (39.0-53.0) 42.0 % (39.0-53.0) Mean Corpuscular Volume 98 fL (79-100) 100 fL (79-100) Mean Corpuscular Hemoglobin 34 pg (25-35) 35 pg (25-35) Mean Corpuscular Hemoglobin Concent 35 g/dL (31-37) 35 g/dL (31-37) Red Cell Distribution Width 13.9 % (11.5-14.5) 14.1 % (11.5-14.5) Platelet Count 162 x10^3/uL (140-400) 156 x10^3/uL (140-400) Neutrophils (%) (Auto) 79 % (31-73) 69 % (31-73) Lymphocytes (%) (Auto) 10 % (24-48) 21 % (24-48) Monocytes (%) (Auto) 11 % (0-9) 10 % (0-9) Eosinophils (%) (Auto) 0 % (0-3) 0 % (0-3) Basophils (%) (Auto) 1 % (0-3) 0 % (0-3) Neutrophils # (Auto) 7.3 x10^3/uL (1.8-7.7) 5.3 x10^3/uL (1.8-7.7) Lymphocytes # (Auto) 1.0 x10^3/uL (1.0-4.8) 1.6 x10^3/uL (1.0-4.8) Monocytes # (Auto) 1.0 x10^3/uL (0.0-1.1) 0.8 x10^3/uL (0.0-1.1) Eosinophils # (Auto) 0.0 x10^3/uL (0.0-0.7) 0.0 x10^3/uL (0.0-0.7) Basophils # (Auto) 0.0 x10^3/uL (0.0-0.2) 0.0 x10^3/uL (0.0-0.2) Sodium Level 136 mmol/L (136-145) 136 mmol/L (136-145) Potassium Level 3.7 mmol/L (3.5-5.1) 3.5 mmol/L (3.5-5.1) Chloride Level 97 mmol/L (98-107) 98 mmol/L (98-107) Carbon Dioxide Level 25 mmol/L (21-32) 30 mmol/L (21-32) Anion Gap 14 (6-14) 8 (6-14) Blood Urea Nitrogen 10 mg/dL (8-26) 11 mg/dL (8-26) Creatinine 0.9 mg/dL (0.7-1.3) 1.1 mg/dL (0.7-1.3) Estimated GFR (Cockcroft-Gault) 90.4 71.8 BUN/Creatinine Ratio 11 (6-20) 10 (6-20) Glucose Level 122 mg/dL (70-99) 121 mg/dL (70-99) Hemoglobin A1c 5.3 % (4.8-5.6) Calcium Level 8.1 mg/dL (8.5-10.1) 8.3 mg/dL (8.5-10.1) Total Bilirubin 1.9 mg/dL (0.2-1.0) 1.2 mg/dL (0.2-1.0) Aspartate Amino Transf (AST/SGOT) 679 U/L (15-37) 245 U/L (15-37) Alanine Aminotransferase (ALT/SGPT) 110 U/L (16-63) 82 U/L (16-63) Alkaline Phosphatase 73 U/L (46-116) 66 U/L (46-116) Creatine Kinase 3256 U/L (39-308) Troponin I Quantitative 189.674 ng/mL (0.000-0.055) Total Protein 6.5 g/dL (6.4-8.2) 6.7 g/dL (6.4-8.2) Albumin 3.3 g/dL (3.4-5.0) 3.0 g/dL (3.4-5.0) Albumin/Globulin Ratio 1.0 (1.0-1.7) 0.8 (1.0-1.7) Triglycerides Level 145 mg/dL (0-150) Cholesterol Level 229 mg/dL (0-200) LDL Cholesterol, Calculated 131 mg/dL (0-100) VLDL Cholesterol, Calculated 29 mg/dL (0-40) Non-HDL Cholesterol Calculated 160 mg/dL (0-129) HDL Cholesterol 69 mg/dL (40-60) Cholesterol/HDL Ratio 3.3 Thyroid Stimulating Hormone (TSH) 2.471 uIU/mL (0.358-3.74) Urine Opiates Screen Pos (NEG) Urine Methadone Screen Neg (NEG) Urine Barbiturates Neg (NEG) Urine Phencyclidine Screen Neg (NEG) Urine Amphetamine/Methamphetamine Neg (NEG) Urine Benzodiazepines Screen Pos (NEG) Urine Cocaine Screen Pos (NEG) Urine Cannabinoids Screen Pos (NEG) Urine Ethyl Alcohol Neg (NEG) Magnesium Level 2.3 mg/dL (1.8-2.4) Comment Review of Relevant I have reviewed the following items wei (where applicable) has been applied. Labs Laboratory Tests Test 11/02/19 10:10 11/02/19 16:00 11/03/19 05:00 White Blood Count 9.3 x10^3/uL (4.0-11.0) 7.8 x10^3/uL (4.0-11.0) Red Blood Count 4.44 x10^6/uL (4.30-5.70) 4.21 x10^6/uL (4.30-5.70) Hemoglobin 15.3 g/dL (13.0-17.5) 14.6 g/dL (13.0-17.5) Hematocrit 43.5 % (39.0-53.0) 42.0 % (39.0-53.0) Mean Corpuscular Volume 98 fL (79-100) 100 fL (79-100) Mean Corpuscular Hemoglobin 34 pg (25-35) 35 pg (25-35) Mean Corpuscular Hemoglobin Concent 35 g/dL (31-37) 35 g/dL (31-37) Red Cell Distribution Width 13.9 % (11.5-14.5) 14.1 % (11.5-14.5) Platelet Count 162 x10^3/uL (140-400) 156 x10^3/uL (140-400) Neutrophils (%) (Auto) 79 % (31-73) 69 % (31-73) Lymphocytes (%) (Auto) 10 % (24-48) 21 % (24-48) Monocytes (%) (Auto) 11 % (0-9) 10 % (0-9) Eosinophils (%) (Auto) 0 % (0-3) 0 % (0-3) Basophils (%) (Auto) 1 % (0-3) 0 % (0-3) Neutrophils # (Auto) 7.3 x10^3/uL (1.8-7.7) 5.3 x10^3/uL (1.8-7.7) Lymphocytes # (Auto) 1.0 x10^3/uL (1.0-4.8) 1.6 x10^3/uL (1.0-4.8) Monocytes # (Auto) 1.0 x10^3/uL (0.0-1.1) 0.8 x10^3/uL (0.0-1.1) Eosinophils # (Auto) 0.0 x10^3/uL (0.0-0.7) 0.0 x10^3/uL (0.0-0.7) Basophils # (Auto) 0.0 x10^3/uL (0.0-0.2) 0.0 x10^3/uL (0.0-0.2) Sodium Level 136 mmol/L (136-145) 136 mmol/L (136-145) Potassium Level 3.7 mmol/L (3.5-5.1) 3.5 mmol/L (3.5-5.1) Chloride Level 97 mmol/L (98-107) 98 mmol/L (98-107) Carbon Dioxide Level 25 mmol/L (21-32) 30 mmol/L (21-32) Anion Gap 14 (6-14) 8 (6-14) Blood Urea Nitrogen 10 mg/dL (8-26) 11 mg/dL (8-26) Creatinine 0.9 mg/dL (0.7-1.3) 1.1 mg/dL (0.7-1.3) Estimated GFR (Cockcroft-Gault) 90.4 71.8 BUN/Creatinine Ratio 11 (6-20) 10 (6-20) Glucose Level 122 mg/dL (70-99) 121 mg/dL (70-99) Hemoglobin A1c 5.3 % (4.8-5.6) Calcium Level 8.1 mg/dL (8.5-10.1) 8.3 mg/dL (8.5-10.1) Total Bilirubin 1.9 mg/dL (0.2-1.0) 1.2 mg/dL (0.2-1.0) Aspartate Amino Transf (AST/SGOT) 679 U/L (15-37) 245 U/L (15-37) Alanine Aminotransferase (ALT/SGPT) 110 U/L (16-63) 82 U/L (16-63) Alkaline Phosphatase 73 U/L (46-116) 66 U/L (46-116) Creatine Kinase 3256 U/L (39-308) Troponin I Quantitative 189.674 ng/mL (0.000-0.055) Total Protein 6.5 g/dL (6.4-8.2) 6.7 g/dL (6.4-8.2) Albumin 3.3 g/dL (3.4-5.0) 3.0 g/dL (3.4-5.0) Albumin/Globulin Ratio 1.0 (1.0-1.7) 0.8 (1.0-1.7) Triglycerides Level 145 mg/dL (0-150) Cholesterol Level 229 mg/dL (0-200) LDL Cholesterol, Calculated 131 mg/dL (0-100) VLDL Cholesterol, Calculated 29 mg/dL (0-40) Non-HDL Cholesterol Calculated 160 mg/dL (0-129) HDL Cholesterol 69 mg/dL (40-60) Cholesterol/HDL Ratio 3.3 Thyroid Stimulating Hormone (TSH) 2.471 uIU/mL (0.358-3.74) Urine Opiates Screen Pos (NEG) Urine Methadone Screen Neg (NEG) Urine Barbiturates Neg (NEG) Urine Phencyclidine Screen Neg (NEG) Urine Amphetamine/Methamphetamine Neg (NEG) Urine Benzodiazepines Screen Pos (NEG) Urine Cocaine Screen Pos (NEG) Urine Cannabinoids Screen Pos (NEG) Urine Ethyl Alcohol Neg (NEG) Magnesium Level 2.3 mg/dL (1.8-2.4) Laboratory Tests Test 11/02/19 10:10 11/02/19 16:00 11/03/19 05:00 White Blood Count 9.3 x10^3/uL (4.0-11.0) 7.8 x10^3/uL (4.0-11.0) Red Blood Count 4.44 x10^6/uL (4.30-5.70) 4.21 x10^6/uL (4.30-5.70) Hemoglobin 15.3 g/dL (13.0-17.5) 14.6 g/dL (13.0-17.5) Hematocrit 43.5 % (39.0-53.0) 42.0 % (39.0-53.0) Mean Corpuscular Volume 98 fL (79-100) 100 fL (79-100) Mean Corpuscular Hemoglobin 34 pg (25-35) 35 pg (25-35) Mean Corpuscular Hemoglobin Concent 35 g/dL (31-37) 35 g/dL (31-37) Red Cell Distribution Width 13.9 % (11.5-14.5) 14.1 % (11.5-14.5) Platelet Count 162 x10^3/uL (140-400) 156 x10^3/uL (140-400) Neutrophils (%) (Auto) 79 % (31-73) 69 % (31-73) Lymphocytes (%) (Auto) 10 % (24-48) 21 % (24-48) Monocytes (%) (Auto) 11 % (0-9) 10 % (0-9) Eosinophils (%) (Auto) 0 % (0-3) 0 % (0-3) Basophils (%) (Auto) 1 % (0-3) 0 % (0-3) Neutrophils # (Auto) 7.3 x10^3/uL (1.8-7.7) 5.3 x10^3/uL (1.8-7.7) Lymphocytes # (Auto) 1.0 x10^3/uL (1.0-4.8) 1.6 x10^3/uL (1.0-4.8) Monocytes # (Auto) 1.0 x10^3/uL (0.0-1.1) 0.8 x10^3/uL (0.0-1.1) Eosinophils # (Auto) 0.0 x10^3/uL (0.0-0.7) 0.0 x10^3/uL (0.0-0.7) Basophils # (Auto) 0.0 x10^3/uL (0.0-0.2) 0.0 x10^3/uL (0.0-0.2) Sodium Level 136 mmol/L (136-145) 136 mmol/L (136-145) Potassium Level 3.7 mmol/L (3.5-5.1) 3.5 mmol/L (3.5-5.1) Chloride Level 97 mmol/L (98-107) 98 mmol/L (98-107) Carbon Dioxide Level 25 mmol/L (21-32) 30 mmol/L (21-32) Anion Gap 14 (6-14) 8 (6-14) Blood Urea Nitrogen 10 mg/dL (8-26) 11 mg/dL (8-26) Creatinine 0.9 mg/dL (0.7-1.3) 1.1 mg/dL (0.7-1.3) Estimated GFR (Cockcroft-Gault) 90.4 71.8 BUN/Creatinine Ratio 11 (6-20) 10 (6-20) Glucose Level 122 mg/dL (70-99) 121 mg/dL (70-99) Hemoglobin A1c 5.3 % (4.8-5.6) Calcium Level 8.1 mg/dL (8.5-10.1) 8.3 mg/dL (8.5-10.1) Total Bilirubin 1.9 mg/dL (0.2-1.0) 1.2 mg/dL (0.2-1.0) Aspartate Amino Transf (AST/SGOT) 679 U/L (15-37) 245 U/L (15-37) Alanine Aminotransferase (ALT/SGPT) 110 U/L (16-63) 82 U/L (16-63) Alkaline Phosphatase 73 U/L (46-116) 66 U/L (46-116) Creatine Kinase 3256 U/L (39-308) Troponin I Quantitative 189.674 ng/mL (0.000-0.055) Total Protein 6.5 g/dL (6.4-8.2) 6.7 g/dL (6.4-8.2) Albumin 3.3 g/dL (3.4-5.0) 3.0 g/dL (3.4-5.0) Albumin/Globulin Ratio 1.0 (1.0-1.7) 0.8 (1.0-1.7) Triglycerides Level 145 mg/dL (0-150) Cholesterol Level 229 mg/dL (0-200) LDL Cholesterol, Calculated 131 mg/dL (0-100) VLDL Cholesterol, Calculated 29 mg/dL (0-40) Non-HDL Cholesterol Calculated 160 mg/dL (0-129) HDL Cholesterol 69 mg/dL (40-60) Cholesterol/HDL Ratio 3.3 Thyroid Stimulating Hormone (TSH) 2.471 uIU/mL (0.358-3.74) Urine Opiates Screen Pos (NEG) Urine Methadone Screen Neg (NEG) Urine Barbiturates Neg (NEG) Urine Phencyclidine Screen Neg (NEG) Urine Amphetamine/Methamphetamine Neg (NEG) Urine Benzodiazepines Screen Pos (NEG) Urine Cocaine Screen Pos (NEG) Urine Cannabinoids Screen Pos (NEG) Urine Ethyl Alcohol Neg (NEG) Magnesium Level 2.3 mg/dL (1.8-2.4) Medications Current Medications Phenylephrine HCl (Wilfredo-Synephrine Inj) 10 mg STK-MED ONCE .ROUTE ; Start 11/02/19 at 05:55; Stop 11/02/19 at 05:55; Status DC Atropine Sulfate (ATROPINE 0.5mg SYRINGE) 0.5 mg STK-MED ONCE .ROUTE ; Start 11/02/19 at 05:55; Stop 11/02/19 at 05:55; Status DC Tirofiban/Sodium Chloride 100 ml @ As Directed STK-MED ONCE IV ; Start 11/02/19 at 05:58; Stop 11/02/19 at 05:59; Status DC Nitroglycerin (Nitroglycerin) 200 mcg 1X ONCE IART Last administered on 11/02/19at 06:15; Start 11/02/19 at 06:15; Stop 11/02/19 at 06:16; Status DC Verapamil HCl (Verapamil) 2.5 mg 1X ONCE IART Last administered on 11/02/19at 06:15; Start 11/02/19 at 06:15; Stop 11/02/19 at 06:16; Status DC Heparin Sodium (Porcine) (Heparin Sodium) 2,500 unit 1X ONCE IART Last administered on 11/02/19at 06:15; Start 11/02/19 at 06:15; Stop 11/02/19 at 06:16; Status DC Heparin Sodium/ Sodium Chloride (HEPARIN for ARTERIAL LINE FLUSH) 1,000 unit 1X ONCE IART Last administered on 11/02/19at 06:15; Start 11/02/19 at 06:15; Stop 11/02/19 at 06:16; Status DC Heparin Sodium/ Sodium Chloride (HEPARIN for ARTERIAL LINE FLUSH) 1,000 unit 1X ONCE IART Last administered on 11/02/19at 06:15; Start 11/02/19 at 06:15; Stop 11/02/19 at 06:16; Status DC Midazolam HCl (Versed) 2 mg 1X ONCE IV Last administered on 11/02/19at 06:15; Start 11/02/19 at 06:15; Stop 11/02/19 at 06:16; Status DC Fentanyl Citrate (Fentanyl 2ml Vial) 100 mcg 1X ONCE IV Last administered on 11/02/19at 06:15; Start 11/02/19 at 06:15; Stop 11/02/19 at 06:16; Status DC Iodixanol (Visipaque 320) 100 ml 1X ONCE IART Last administered on 11/02/19at 06:15; Start 11/02/19 at 06:15; Stop 11/02/19 at 06:16; Status DC Lidocaine HCl (Lidocaine 1% 20ml Vial) 20 ml 1X ONCE INJ Last administered on 11/02/19at 06:15; Start 11/02/19 at 06:15; Stop 11/02/19 at 06:16; Status DC Ondansetron HCl (Zofran) 4 mg STK-MED ONCE .ROUTE ; Start 11/02/19 at 06:12; Stop 11/02/19 at 06:12; Status DC Heparin Sodium (Porcine) (Heparin Sodium) 2,000 unit 1X ONCE IV Last administered on 11/02/19at 06:15; Start 11/02/19 at 06:15; Stop 11/02/19 at 06:2 1; Status DC Tirofiban/Sodium Chloride 100 ml @ 0 mls/hr CONT PRN IV PER PROTOCOL Last administered on 11/02/19at 20:36; Start 11/02/19 at 06:15; Stop 11/03/19 at 00:14; Status DC Nitroglycerin (Nitroglycerin) 200 mcg STK-MED ONCE .ROUTE ; Start 11/02/19 at 06:22; Stop 11/02/19 at 06:22; Status DC Nitroglycerin (Nitroglycerin) 200 mcg 1X ONCE IART Last administered on 11/02/19at 06:27; Start 11/02/19 at 06:30; Stop 11/02/19 at 06:31; Status DC Iodixanol (Visipaque 320) 100 ml STK-MED ONCE .ROUTE ; Start 11/02/19 at 06:25; Stop 11/02/19 at 06:25; Status DC Ondansetron HCl (Zofran) 4 mg 1X ONCE IVP Last administered on 11/02/19at 06:30; Start 11/02/19 at 06:30; Stop 11/02/19 at 06:31; Status DC Fentanyl Citrate (Fentanyl 2ml Vial) 100 mcg STK-MED ONCE .ROUTE ; Start 11/02/19 at 06:35; Stop 11/02/19 at 06:35; Status DC Fentanyl Citrate (Fentanyl 2ml Vial) 100 mcg 1X ONCE IV Last administered on 11/02/19at 06:45; Start 11/02/19 at 06:45; Stop 11/02/19 at 06:46; Status DC Prasugrel (Effient) 60 mg 1X ONCE PO Last administered on 11/02/19at 07:00; Start 11/02/19 at 06:45; Stop 11/02/19 at 06:50; Status DC Prasugrel (Effient) 10 mg STK-MED ONCE .ROUTE ; Start 11/02/19 at 06:52; Stop 11/02/19 at 06:52; Status DC Ondansetron HCl (Zofran) 4 mg PRN Q4HRS PRN IV NAUSEA/VOMITING; Start 11/02/19 at 07:45; Stop 11/02/19 at 10:28; Status DC Acetaminophen (Tylenol) 650 mg PRN Q4HRS PRN PO TEMP OVER 100.4F OR MILD PAIN; Start 11/02/19 at 07:45; Stop 11/02/19 at 10:27; Status DC Multivitamins (Thera M Plus) 1 tab DAILY PO Last administered on 11/03/19at 08:25; Start 11/02/19 at 12:00 Folic Acid (Folic Acid) 1 mg DAILY PO Last administered on 11/03/19at 08:24; Start 11/02/19 at 12:00 Thiamine Mononitrate (Vitamin B-1) 100 mg DAILY PO Last administered on 11/03/19at 08:26; Start 11/02/19 at 12:00 Lorazepam (Ativan) 4 mg PRN Q1HR PRN PO For CIWA 8-14; Start 11/02/19 at 10:15 Lorazepam (Ativan) 8 mg PRN Q1HR PRN PO For CIWA 15 or greater; Start 11/02/19 at 10:15 Lorazepam (Ativan Inj) 2 mg PRN Q1HR PRN IV For CIWA 8-14; Start 11/02/19 at 10:15; Status Cancel Lorazepam (Ativan Inj) 4 mg PRN Q1HR PRN IV For CIWA 15 or greater; Start 11/02/19 at 10:15; Status Cancel Haloperidol Lactate (Haldol Inj) 5 mg PRN Q4HRS PRN IVP Hallucinatns,Confusn,Delirium; Start 11/02/19 at 10:15 Lorazepam (Ativan Inj) 2 mg PRN Q15MIN PRN IV SEE COMMENTS; Start 11/02/19 at 10:15 Lorazepam (Ativan Inj) 4 mg PRN Q15MIN PRN IV SEE COMMENTS; Start 11/02/19 at 10:15 Oxycodone HCl (Roxicodone) 5 mg PRN Q3HRS PRN PO SEVERE PAIN 7-10; Start 11/02/19 at 10:15 Acetaminophen (Tylenol) 650 mg PRN Q6HRS PRN PO Headaches, Temp > 101.5'; Start 11/02/19 at 10:15 Lorazepam (Ativan Inj) 0.5 mg PRN Q6HRS PRN IVP ANXIETY / AGITATION; Start 11/02/19 at 10:15 Lorazepam (Ativan) 1 mg PRN Q6HRS PRN PO ANXIETY / AGITATION; Start 11/02/19 at 10:15 Ondansetron HCl (Zofran) 4 mg PRN Q6HRS PRN IVP NAUSEA/VOMITING; Start 11/02/19 at 10:15 Prochlorperazine (Compazine) 25 mg PRN Q12HR PRN [place] NAUSEA/VOMITING; Start 11/02/19 at 10:15 Al Hydroxide/Mg Hydroxide (Mylanta Plus Xs) 30 ml PRN Q3HRS PRN PO HEARTBURN / GAS; Start 11/02/19 at 10:15 Calcium Carbonate/ Glycine (Tums) 500 mg PRN Q3HRS PRN PO HEARTBURN / GAS; Start 11/02/19 at 10:15 Famotidine (Pepcid) 20 mg BID PO Last administered on 11/03/19at 08:24; Start 11/02/19 at 21:00 Zolpidem Tartrate (Ambien) 5 mg PRN QHS PRN PO INSOMNIA, MAY REPEAT IN 1HR; Start 11/02/19 at 10:15 Info (Icu Electrolyte Protocol) 1 ea DAILY MC ; Start 11/03/19 at 09:00 Sodium Chloride (Normal Saline Flush) 3 ml QSHIFT PRN IV AFTER MEDS AND BLOOD DRAWS; Start 11/02/19 at 10:15 Acetaminophen/ Hydrocodone Bitart (Lortab 5/325) 1 tab PRN Q4HRS PRN PO MILD PAIN 1-3; Start 11/02/19 at 10:15 Docusate Sodium (Colace) 100 mg BID PO Last administered on 11/03/19at 08:25; Start 11/02/19 at 21:00 Magnesium Hydroxide (Milk Of Magnesia) 2,400 mg PRN Q12HR PRN PO CONSTIPATION; Start 11/02/19 at 10:15 Bisacodyl (Dulcolax Supp) 10 mg PRN DAILY PRN [place] CONSTIPATION; Start 11/02/19 at 10:15 Atorvastatin Calcium (Lipitor) 20 mg QHS PO Last administered on 11/02/19at 20:37; Start 11/02/19 at 21:00 Metoprolol Tartrate (Lopressor) 12.5 mg BID PO Last administered on 11/03/19at 08:25; Start 11/02/19 at 21:00 Aspirin (Ecotrin) 81 mg DAILYWBKFT PO Last administered on 11/03/19at 08:24; Start 11/03/19 at 08:00 Prasugrel (Effient) 10 mg DAILYWBKFT PO Last administered on 11/03/19at 08:24; Start 11/03/19 at 08:00 Active Scripts Active Reported Omeprazole 20 Mg Capsule. 1 Cap PO DAILY Vitals/I & O Vital Sign - Last 24 Hours 11/02/19 11/02/19 11/02/19 11/02/19 09:45 10:00 10:15 10:30 Pulse 64 68 64 64 Resp 16 16 16 16 B/P (MAP) 123/63 (83) 111/62 (78) 114/58 (76) 110/64 (79) Pulse Ox 99 99 99 99 O2 Delivery Nasal Cannula Nasal Cannula Nasal Cannula Nasal Cannula O2 Flow Rate 2.0 2.0 2.0 2.0 11/02/19 11/02/19 11/02/19 11/02/19 10:36 10:45 11:00 11:15 Pulse 62 64 66 Resp 16 16 16 B/P (MAP) 113/69 (84) 114/58 (76) 114/55 (74) Pulse Ox 100 99 99 99 O2 Delivery Nasal Cannula Nasal Cannula Nasal Cannula O2 Flow Rate 2.0 2.0 2.0 11/02/19 11/02/19 11/02/19 11/02/19 11:30 12:00 12:00 13:00 Temp 99.3 99.3 Pulse 64 80 74 Resp 16 23 30 B/P (MAP) 112/60 (77) 115/61 (79) 115/55 (75) Pulse Ox 99 98 100 O2 Delivery Nasal Cannula Nasal Cannula Nasal Cannula Nasal Cannula O2 Flow Rate 2.0 2.0 2.0 2.0 11/02/19 11/02/19 11/02/19 11/02/19 14:00 15:00 16:00 16:00 Temp 98.7 98.7 Pulse 64 62 96 Resp 20 22 18 B/P (MAP) 121/66 (84) 113/58 (76) 138/70 (92) Pulse Ox 100 99 99 O2 Delivery Nasal Cannula Room Air Room Air Room Air O2 Flow Rate 2.0 11/02/19 11/02/19 11/02/19 11/02/19 17:00 18:00 20:01 20:09 Temp 98.4 98.4 Pulse 65 76 73 Resp 22 27 B/P (MAP) 129/81 (97) 124/68 (86) 127/72 (90) Pulse Ox 99 99 99 O2 Delivery Room Air Room Air Room Air Room Air O2 Flow Rate 2.0 11/02/19 11/02/19 11/03/19 11/03/19 20:38 22:55 02:38 07:00 Temp 99.2 98.9 98.9 99.2 98.9 98.9 Pulse 73 75 80 72 Resp 18 B/P (MAP) 127/72 122/67 (85) 125/67 (86) 119/70 (86) Pulse Ox 99 98 98 O2 Delivery Room Air Room Air Room Air O2 Flow Rate 2.0 11/03/19 11/03/19 08:00 08:25 Pulse 75 B/P (MAP) 119/70 O2 Delivery Room Air Intake and Output 11/02/19 11/02/19 11/03/19 15:00 23:00 07:00 Intake Total 716 ml 480 ml Output Total 800 ml 800 ml Balance -84 ml -320 ml Justicifation of Admission Dx: Justifications for Admission: Justification of Admission Dx: Yes [place]: Acute NSTEMI ARTURO SOUSA MD Nov 03, 2019 09:33
--- NOTE | 2019-11-03 10:42 | PDOC ---
PROGRESS NOTES Subjective Subjective Denied any chest pain or shortness of breath Objective Objective Vital Signs Date Time Temp Pulse Resp B/P (MAP) Pulse Ox O2 Delivery O2 Flow Rate FiO2 11/03/19 08:25 75 119/70 11/03/19 08:00 Room Air 11/03/19 07:00 98.9 98 98.9 11/03/19 02:38 18 2.0 Intake and Output 11/03/19 07:00 Intake Total 1196 ml Output Total 1600 ml Balance -404 ml Intake Oral 980 ml IV Total 216 ml Output Urine Total 1600 ml Physical Exam Abdomen: Normal bowel sounds, Soft, No tenderness Extremities: No cyanosis, No edema General: Alert, Oriented X3, Cooperative, No acute distress HEENT: PERRLA Lungs: Clear to auscultation, Normal air movement Neuro: Normal speech, Strength at 5/5 X4 ext, Sensation intact, Cranial nerves 3-12 NL Psych/Mental Status: Mental status NL, Mood NL Assessment Assessment 1. Acute inferior STEMI s/p PCI/PIPO to RCA, currently stable and chest pain- free. Telemetry did not show any significant arrhythmias. 2D echo showed LVEF 50 to 55%. Continue current medications including dual antiplatelet therapy. Will consider initiation of statins as an outpatient since patient had acute transaminitis on admission. 2. Cocaine use: Advised on complete cessation Okay for discharge from cardiac standpoint. Follow-up with our office in 1 month. Comment Review of Relevant I have reviewed the following items wei (where applicable) has been applied. Labs Laboratory Tests Test 11/02/19 16:00 11/03/19 05:00 Urine Opiates Screen Pos (NEG) Urine Methadone Screen Neg (NEG) Urine Barbiturates Neg (NEG) Urine Phencyclidine Screen Neg (NEG) Urine Amphetamine/Methamphetamine Neg (NEG) Urine Benzodiazepines Screen Pos (NEG) Urine Cocaine Screen Pos (NEG) Urine Cannabinoids Screen Pos (NEG) Urine Ethyl Alcohol Neg (NEG) White Blood Count 7.8 x10^3/uL (4.0-11.0) Red Blood Count 4.21 x10^6/uL (4.30-5.70) Hemoglobin 14.6 g/dL (13.0-17.5) Hematocrit 42.0 % (39.0-53.0) Mean Corpuscular Volume 100 fL (79-100) Mean Corpuscular Hemoglobin 35 pg (25-35) Mean Corpuscular Hemoglobin Concent 35 g/dL (31-37) Red Cell Distribution Width 14.1 % (11.5-14.5) Platelet Count 156 x10^3/uL (140-400) Neutrophils (%) (Auto) 69 % (31-73) Lymphocytes (%) (Auto) 21 % (24-48) Monocytes (%) (Auto) 10 % (0-9) Eosinophils (%) (Auto) 0 % (0-3) Basophils (%) (Auto) 0 % (0-3) Neutrophils # (Auto) 5.3 x10^3/uL (1.8-7.7) Lymphocytes # (Auto) 1.6 x10^3/uL (1.0-4.8) Monocytes # (Auto) 0.8 x10^3/uL (0.0-1.1) Eosinophils # (Auto) 0.0 x10^3/uL (0.0-0.7) Basophils # (Auto) 0.0 x10^3/uL (0.0-0.2) Sodium Level 136 mmol/L (136-145) Potassium Level 3.5 mmol/L (3.5-5.1) Chloride Level 98 mmol/L (98-107) Carbon Dioxide Level 30 mmol/L (21-32) Anion Gap 8 (6-14) Blood Urea Nitrogen 11 mg/dL (8-26) Creatinine 1.1 mg/dL (0.7-1.3) Estimated GFR (Cockcroft-Gault) 71.8 BUN/Creatinine Ratio 10 (6-20) Glucose Level 121 mg/dL (70-99) Calcium Level 8.3 mg/dL (8.5-10.1) Magnesium Level 2.3 mg/dL (1.8-2.4) Total Bilirubin 1.2 mg/dL (0.2-1.0) Aspartate Amino Transf (AST/SGOT) 245 U/L (15-37) Alanine Aminotransferase (ALT/SGPT) 82 U/L (16-63) Alkaline Phosphatase 66 U/L (46-116) Total Protein 6.7 g/dL (6.4-8.2) Albumin 3.0 g/dL (3.4-5.0) Albumin/Globulin Ratio 0.8 (1.0-1.7) Medications Current Medications Aspirin (Ecotrin) 81 mg DAILYWBKFT PO Last administered on 11/03/19 08:24; Start 11/03/19 at 08:00 Atorvastatin Calcium (Lipitor) 20 mg QHS PO Last administered on 11/02/19at 20:37; Start 11/02/19 at 21:00 Docusate Sodium (Colace) 100 mg BID PO Last administered on 11/03/19 08:25; Start 11/02/19 at 21:00 Famotidine (Pepcid) 20 mg BID PO Last administered on 11/03/19 08:24; Start 11/02/19 at 21:00 Folic Acid (Folic Acid) 1 mg DAILY PO Last administered on 11/03/19 08:24; Start 11/02/19 at 12:00 Info (Icu Electrolyte Protocol) 1 ea DAILY MC ; Start 11/03/19 at 09:00 Metoprolol Tartrate (Lopressor) 12.5 mg BID PO Last administered on 11/03/19 08:25; Start 11/02/19 at 21:00 Multivitamins (Thera M Plus) 1 tab DAILY PO Last administered on 11/03/19 08:25; Start 11/02/19 at 12:00 Prasugrel (Effient) 10 mg DAILYWBKFT PO Last administered on 11/03/19 08:24; Start 11/03/19 at 08:00 Thiamine Mononitrate (Vitamin B-1) 100 mg DAILY PO Last administered on 11/03/19 08:26; Start 11/02/19 at 12:00 Vitals/I & O Vital Sign - Last 24 Hours 11/02/19 11/02/19 11/02/19 11/02/19 10:45 11:00 11:15 11:30 Temp 99.3 99.3 Pulse 62 64 66 64 Resp 16 16 16 16 B/P (MAP) 113/69 (84) 114/58 (76) 114/55 (74) 112/60 (77) Pulse Ox 99 99 99 99 O2 Delivery Nasal Cannula Nasal Cannula Nasal Cannula Nasal Cannula O2 Flow Rate 2.0 2.0 2.0 2.0 7/24/20 7/24/20 7/24/20 7/24/20 12:00 12:00 13:00 14:00 Pulse 80 74 64 Resp 23 30 20 B/P (MAP) 115/61 (79) 115/55 (75) 121/66 (84) Pulse Ox 98 100 100 O2 Delivery Nasal Cannula Nasal Cannula Nasal Cannula Nasal Cannula O2 Flow Rate 2.0 2.0 2.0 2.0 11/02/19 11/02/19 11/02/19 11/02/19 15:00 16:00 16:00 17:00 Temp 98.7 98.7 Pulse 62 96 65 Resp 22 18 22 B/P (MAP) 113/58 (76) 138/70 (92) 129/81 (97) Pulse Ox 99 99 99 O2 Delivery Room Air Room Air Room Air Room Air 11/02/19 11/02/19 11/02/19 11/02/19 18:00 20:01 20:09 20:38 Temp 98.4 98.4 Pulse 76 73 73 Resp 27 B/P (MAP) 124/68 (86) 127/72 (90) 127/72 Pulse Ox 99 99 O2 Delivery Room Air Room Air Room Air O2 Flow Rate 2.0 11/02/19 11/03/19 11/03/19 11/03/19 22:55 02:38 07:00 08:00 Temp 99.2 98.9 98.9 99.2 98.9 98.9 Pulse 75 80 72 Resp 18 B/P (MAP) 122/67 (85) 125/67 (86) 119/70 (86) Pulse Ox 99 98 98 O2 Delivery Room Air Room Air Room Air Room Air O2 Flow Rate 2.0 11/03/19 08:25 Pulse 75 B/P (MAP) 119/70 Intake and Output 11/02/19 11/02/19 11/03/19 15:00 23:00 07:00 Intake Total 716 ml 480 ml Output Total 800 ml 800 ml Balance -84 ml -320 ml SVETLANA MARLEY MD Nov 03, 2019 10:42
[2019-11-03 11:00] VITALS: BP 110/70
[2019-11-03 15:00] VITALS: BP 115/74
--- NOTE | 2019-11-03 15:28 | RAD ---
Single AP view of the chest. Comparison: None. Indication: Angina Findings: The heart is enlarged. There is no pneumothorax or effusion. No air space or interstitial disease. Impression: 1. No acute cardiopulmonary process. 2. Cardiomegaly. Electronically signed by: Praveen Baker MD (11/03/2019 3:25 PM) [id number]
--- NOTE | 2019-11-03 15:52 | PDOC2 ---
CONSULT Date of Consult Date of Consult DATE: 11/03/19 TIME: 15:47 Reason for Consult Reason for Consult: Abnormal transaminases History of Present Illness Reason for Visit: This is a 48-year-old gentleman who has a history of acid reflux disease and Obrien's which is been evaluated in the past. He is on chronic omeprazole therapy. It seems to control his symptoms. He had the sudden onset recently of chest pain and was found to have an acute TX and was transferred here from [facility] for cardiac intervention. His initial labs reveal an significantly elevated CPK and troponin and follow-up labs show elevated AST and ALT. Historically, he does drink an average of 3 beers per day but is never been told his liver tests were abnormal before. Denies any exposure to hepatitis. His urine drug screen was positive for cocaine but he says he is never use cocaine and it might be a contaminant from other people. This is unclear. He describes a good appetite, regular bowel pattern without bleeding. There is no family history of GI complaints or colon cancer. He has had no prior colonoscopy but does describe several endoscopies remotely Past Medical History Cardiovascular: No pertinent hx, TX GI: No pertinent hx Heme/Onc: No pertinent hx Hepatobiliary: No pertinent hx Psych: No pertinent hx Rheumatologic: No pertinent hx Infectious disease: No pertinent hx ENT: No pertinent hx Endocrine: No pertinent hx Dermatology: No pertinent hx Family History Family History: Alcohol Abuse, Cancer Social History Social History: Parent (FATHER DAD LARYNGEAL CANCER) No ALCOHOL: heavy Drugs: Marijuana (3 BEERS ON AVERAGE A DAY ) Current Medications Current Medications Current Medications Phenylephrine HCl (Wilfredo-Synephrine Inj) 10 mg STK-MED ONCE .ROUTE ; Start 11/02/19 at 05:55; Stop 11/02/19 at 05:55; Status DC Atropine Sulfate (ATROPINE 0.5mg SYRINGE) 0.5 mg STK-MED ONCE .ROUTE ; Start 11/02/19 at 05:55; Stop 11/02/19 at 05:55; Status DC Tirofiban/Sodium Chloride 100 ml @ As Directed STK-MED ONCE IV ; Start 11/02/19 at 05:58; Stop 11/02/19 at 05:59; Status DC Nitroglycerin (Nitroglycerin) 200 mcg 1X ONCE IART Last administered on 11/02/19at 06:15; Start 11/02/19 at 06:15; Stop 11/02/19 at 06:16; Status DC Verapamil HCl (Verapamil) 2.5 mg 1X ONCE IART Last administered on 11/02/19at 06:15; Start 11/02/19 at 06:15; Stop 11/02/19 at 06:16; Status DC Heparin Sodium (Porcine) (Heparin Sodium) 2,500 unit 1X ONCE IART Last administered on 11/02/19at 06:15; Start 11/02/19 at 06:15; Stop 11/02/19 at 06:16; Status DC Heparin Sodium/ Sodium Chloride (HEPARIN for ARTERIAL LINE FLUSH) 1,000 unit 1X ONCE IART Last administered on 11/02/19at 06:15; Start 11/02/19 at 06:15; Stop 11/02/19 at 06:16; Status DC Heparin Sodium/ Sodium Chloride (HEPARIN for ARTERIAL LINE FLUSH) 1,000 unit 1X ONCE IART Last administered on 11/02/19at 06:15; Start 11/02/19 at 06:15; Stop 11/02/19 at 06:16; Status DC Midazolam HCl (Versed) 2 mg 1X ONCE IV Last administered on 11/02/19at 06:15; Start 11/02/19 at 06:15; Stop 11/02/19 at 06:16; Status DC Fentanyl Citrate (Fentanyl 2ml Vial) 100 mcg 1X ONCE IV Last administered on 11/02/19at 06:15; Start 11/02/19 at 06:15; Stop 11/02/19 at 06:16; Status DC Iodixanol (Visipaque 320) 100 ml 1X ONCE IART Last administered on 11/02/19at 06:15; Start 11/02/19 at 06:15; Stop 11/02/19 at 06:16; Status DC Lidocaine HCl (Lidocaine 1% 20ml Vial) 20 ml 1X ONCE INJ Last administered on 11/02/19at 06:15; Start 11/02/19 at 06:15; Stop 11/02/19 at 06:16; Status DC Ondansetron HCl (Zofran) 4 mg STK-MED ONCE .ROUTE ; Start 11/02/19 at 06:12; Stop 11/02/19 at 06:12; Status DC Heparin Sodium (Porcine) (Heparin Sodium) 2,000 unit 1X ONCE IV Last administ ered on 11/02/19at 06:15; Start 11/02/19 at 06:15; Stop 11/02/19 at 06:21; Status DC Tirofiban/Sodium Chloride 100 ml @ 0 mls/hr CONT PRN IV PER PROTOCOL Last administered on 11/02/19at 20:36; Start 11/02/19 at 06:15; Stop 11/03/19 at 00:14; Status DC Nitroglycerin (Nitroglycerin) 200 mcg STK-MED ONCE .ROUTE ; Start 11/02/19 at 06:22; Stop 11/02/19 at 06:22; Status DC Nitroglycerin (Nitroglycerin) 200 mcg 1X ONCE IART Last administered on 11/02/19at 06:27; Start 11/02/19 at 06:30; Stop 11/02/19 at 06:31; Status DC Iodixanol (Visipaque 320) 100 ml STK-MED ONCE .ROUTE ; Start 11/02/19 at 06:25; Stop 11/02/19 at 06:25; Status DC Ondansetron HCl (Zofran) 4 mg 1X ONCE IVP Last administered on 11/02/19at 06:30; Start 11/02/19 at 06:30; Stop 11/02/19 at 06:31; Status DC Fentanyl Citrate (Fentanyl 2ml Vial) 100 mcg STK-MED ONCE .ROUTE ; Start 11/02/19 at 06:35; Stop 11/02/19 at 06:35; Status DC Fentanyl Citrate (Fentanyl 2ml Vial) 100 mcg 1X ONCE IV Last administered on 11/02/19at 06:45; Start 11/02/19 at 06:45; Stop 11/02/19 at 06:46; Status DC Prasugrel (Effient) 60 mg 1X ONCE PO Last administered on 11/02/19at 07:00; Start 11/02/19 at 06:45; Stop 11/02/19 at 06:50; Status DC Prasugrel (Effient) 10 mg STK-MED ONCE .ROUTE ; Start 11/02/19 at 06:52; Stop 11/02/19 at 06:52; Status DC Ondansetron HCl (Zofran) 4 mg PRN Q4HRS PRN IV NAUSEA/VOMITING; Start 11/02/19 at 07:45; Stop 11/02/19 at 10:28; Status DC Acetaminophen (Tylenol) 650 mg PRN Q4HRS PRN PO TEMP OVER 100.4F OR MILD PAIN; Start 11/02/19 at 07:45; Stop 11/02/19 at 10:27; Status DC Multivitamins (Thera M Plus) 1 tab DAILY PO Last administered on 11/03/19at 08:25; Start 11/02/19 at 12:00 Folic Acid (Folic Acid) 1 mg DAILY PO Last administered on 11/03/19at 08:24; Start 11/02/19 at 12:00 Thiamine Mononitrate (Vitamin B-1) 100 mg DAILY PO Last administered on 11/03/19at 08:26; Start 11/02/19 at 12:00 Lorazepam (Ativan) 4 mg PRN Q1HR PRN PO For CIWA 8-14; Start 11/02/19 at 10:15 Lorazepam (Ativan) 8 mg PRN Q1HR PRN PO For CIWA 15 or greater; Start 11/02/19 at 10:15 Lorazepam (Ativan Inj) 2 mg PRN Q1HR PRN IV For CIWA 8-14; Start 11/02/19 at 10:15; Status Cancel Lorazepam (Ativan Inj) 4 mg PRN Q1HR PRN IV For CIWA 15 or greater; Start 11/02/19 at 10:15; Status Cancel Haloperidol Lactate (Haldol Inj) 5 mg PRN Q4HRS PRN IVP Hallucinatns,Confusn,Delirium; Start 11/02/19 at 10:15 Lorazepam (Ativan Inj) 2 mg PRN Q15MIN PRN IV SEE COMMENTS; Start 11/02/19 at 10:15 Lorazepam (Ativan Inj) 4 mg PRN Q15MIN PRN IV SEE COMMENTS; Start 11/02/19 at 10:15 Oxycodone HCl (Roxicodone) 5 mg PRN Q3HRS PRN PO SEVERE PAIN 7-10; Start 11/02/19 at 10:15 Acetaminophen (Tylenol) 650 mg PRN Q6HRS PRN PO Headaches, Temp > 101.5'; Start 11/02/19 at 10:15 Lorazepam (Ativan Inj) 0.5 mg PRN Q6HRS PRN IVP ANXIETY / AGITATION; Start 11/02/19 at 10:15 Lorazepam (Ativan) 1 mg PRN Q6HRS PRN PO ANXIETY / AGITATION; Start 11/02/19 at 10:15 Ondansetron HCl (Zofran) 4 mg PRN Q6HRS PRN IVP NAUSEA/VOMITING; Start 11/02/19 at 10:15 Prochlorperazine (Compazine) 25 mg PRN Q12HR PRN AK NAUSEA/VOMITING; Start 11/02/19 at 10:15 Al Hydroxide/Mg Hydroxide (Mylanta Plus Xs) 30 ml PRN Q3HRS PRN PO HEARTBURN / GAS; Start 11/02/19 at 10:15 Calcium Carbonate/ Glycine (Tums) 500 mg PRN Q3HRS PRN PO HEARTBURN / GAS; Start 11/02/19 at 10:15 Famotidine (Pepcid) 20 mg BID PO Last administered on 11/03/19at 08:24; Start 11/02/19 at 21:00 Zolpidem Tartrate (Ambien) 5 mg PRN QHS PRN PO INSOMNIA, MAY REPEAT IN 1HR; Start 11/02/19 at 10:15 Info (Icu Electrolyte Protocol) 1 ea DAILY MC ; Start 11/03/19 at 09:00 Sodium Chloride (Normal Saline Flush) 3 ml QSHIFT PRN IV AFTER MEDS AND BLOOD DRAWS; Start 11/02/19 at 10:15 Acetaminophen/ Hydrocodone Bitart (Lortab 5/325) 1 tab PRN Q4HRS PRN PO MILD PAIN 1-3; Start 11/02/19 at 10:15 Docusate Sodium (Colace) 100 mg BID PO Last administered on 11/03/19at 08:25; Start 11/02/19 at 21:00 Magnesium Hydroxide (Milk Of Magnesia) 2,400 mg PRN Q12HR PRN PO CONSTIPATION; Start 11/02/19 at 10:15 Bisacodyl (Dulcolax Supp) 10 mg PRN DAILY PRN [place] CONSTIPATION; Start 11/02/19 at 10:15 Atorvastatin Calcium (Lipitor) 20 mg QHS PO Last administered on 11/02/19at 20:37; Start 11/02/19 at 21:00 Metoprolol Tartrate (Lopressor) 12.5 mg BID PO Last administered on 11/03/19at 08:25; Start 11/02/19 at 21:00 Aspirin (Ecotrin) 81 mg DAILYWBKFT PO Last administered on 11/03/19at 08:24; Start 11/03/19 at 08:00 Prasugrel (Effient) 10 mg DAILYWBKFT PO Last administered on 11/03/19at 08:24; Start 11/03/19 at 08:00 Active Scripts Active Reported Omeprazole 20 Mg Capsule. 1 Cap PO DAILY Allergies Allergies: Coded Allergies: No Known Drug Allergies (Unverified , 11/02/19) Physical Exam General: Alert, Oriented X3, Cooperative HEENT: Atraumatic Lungs: Clear to auscultation Heart: Regular rate, Normal S1, Normal S2 Abdomen: Normal bowel sounds, Soft, No tenderness, No hepatosplenomegaly, No masses Extremities: No clubbing, No cyanosis Neuro: Normal speech Vitals VITALS Vital Signs Date Time Temp Pulse Resp B/P (MAP) Pulse Ox O2 Delivery O2 Flow Rate FiO2 11/03/19 15:00 98.4 65 115/74 (88) 98 Room Air 98.4 11/03/19 02:38 18 2.0 Labs Labs Laboratory Tests Test 11/02/19 10:10 11/02/19 16:00 11/03/19 05:00 White Blood Count 9.3 x10^3/uL (4.0-11.0) 7.8 x10^3/uL (4.0-11.0) Red Blood Count 4.44 x10^6/uL (4.30-5.70) 4.21 x10^6/uL (4.30-5.70) Hemoglobin 15.3 g/dL (13.0-17.5) 14.6 g/dL (13.0-17.5) Hematocrit 43.5 % (39.0-53.0) 42.0 % (39.0-53.0) Mean Corpuscular Volume 98 fL (79-100) 100 fL (79-100) Mean Corpuscular Hemoglobin 34 pg (25-35) 35 pg (25-35) Mean Corpuscular Hemoglobin Concent 35 g/dL (31-37) 35 g/dL (31-37) Red Cell Distribution Width 13.9 % (11.5-14.5) 14.1 % (11.5-14.5) Platelet Count 162 x10^3/uL (140-400) 156 x10^3/uL (140-400) Neutrophils (%) (Auto) 79 % (31-73) 69 % (31-73) Lymphocytes (%) (Auto) 10 % (24-48) 21 % (24-48) Monocytes (%) (Auto) 11 % (0-9) 10 % (0-9) Eosinophils (%) (Auto) 0 % (0-3) 0 % (0-3) Basophils (%) (Auto) 1 % (0-3) 0 % (0-3) Neutrophils # (Auto) 7.3 x10^3/uL (1.8-7.7) 5.3 x10^3/uL (1.8-7.7) Lymphocytes # (Auto) 1.0 x10^3/uL (1.0-4.8) 1.6 x10^3/uL (1.0-4.8) Monocytes # (Auto) 1.0 x10^3/uL (0.0-1.1) 0.8 x10^3/uL (0.0-1.1) Eosinophils # (Auto) 0.0 x10^3/uL (0.0-0.7) 0.0 x10^3/uL (0.0-0.7) Basophils # (Auto) 0.0 x10^3/uL (0.0-0.2) 0.0 x10^3/uL (0.0-0.2) Sodium Level 136 mmol/L (136-145) 136 mmol/L (136-145) Potassium Level 3.7 mmol/L (3.5-5.1) 3.5 mmol/L (3.5-5.1) Chloride Level 97 mmol/L (98-107) 98 mmol/L (98-107) Carbon Dioxide Level 25 mmol/L (21-32) 30 mmol/L (21-32) Anion Gap 14 (6-14) 8 (6-14) Blood Urea Nitrogen 10 mg/dL (8-26) 11 mg/dL (8-26) Creatinine 0.9 mg/dL (0.7-1.3) 1.1 mg/dL (0.7-1.3) Estimated GFR (Cockcroft-Gault) 90.4 71.8 BUN/Creatinine Ratio 11 (6-20) 10 (6-20) Glucose Level 122 mg/dL (70-99) 121 mg/dL (70-99) Hemoglobin A1c 5.3 % (4.8-5.6) Calcium Level 8.1 mg/dL (8.5-10.1) 8.3 mg/dL (8.5-10.1) Total Bilirubin 1.9 mg/dL (0.2-1.0) 1.2 mg/dL (0.2-1.0) Aspartate Amino Transf (AST/SGOT) 679 U/L (15-37) 245 U/L (15-37) Alanine Aminotransferase (ALT/SGPT) 110 U/L (16-63) 82 U/L (16-63) Alkaline Phosphatase 73 U/L (46-116) 66 U/L (46-116) Creatine Kinase 3256 U/L (39-308) 898 U/L (39-308) Troponin I Quantitative 189.674 ng/mL (0.000-0.055) Total Protein 6.5 g/dL (6.4-8.2) 6.7 g/dL (6.4-8.2) Albumin 3.3 g/dL (3.4-5.0) 3.0 g/dL (3.4-5.0) Albumin/Globulin Ratio 1.0 (1.0-1.7) 0.8 (1.0-1.7) Triglycerides Level 145 mg/dL (0-150) Cholesterol Level 229 mg/dL (0-200) LDL Cholesterol, Calculated 131 mg/dL (0-100) VLDL Cholesterol, Calculated 29 mg/dL (0-40) Non-HDL Cholesterol Calculated 160 mg/dL (0-129) HDL Cholesterol 69 mg/dL (40-60) Cholesterol/HDL Ratio 3.3 Thyroid Stimulating Hormone (TSH) 2.471 uIU/mL (0.358-3.74) Urine Opiates Screen Pos (NEG) Urine Methadone Screen Neg (NEG) Urine Barbiturates Neg (NEG) Urine Phencyclidine Screen Neg (NEG) Urine Amphetamine/Methamphetamine Neg (NEG) Urine Benzodiazepines Screen Pos (NEG) Urine Cocaine Screen Pos (NEG) Urine Cannabinoids Screen Pos (NEG) Urine Ethyl Alcohol Neg (NEG) Magnesium Level 2.3 mg/dL (1.8-2.4) Laboratory Tests Test 11/02/19 16:00 11/03/19 05:00 Urine Opiates Screen Pos (NEG) Urine Methadone Screen Neg (NEG) Urine Barbiturates Neg (NEG) Urine Phencyclidine Screen Neg (NEG) Urine Amphetamine/Methamphetamine Neg (NEG) Urine Benzodiazepines Screen Pos (NEG) Urine Cocaine Screen Pos (NEG) Urine Cannabinoids Screen Pos (NEG) Urine Ethyl Alcohol Neg (NEG) White Blood Count 7.8 x10^3/uL (4.0-11.0) Red Blood Count 4.21 x10^6/uL (4.30-5.70) Hemoglobin 14.6 g/dL (13.0-17.5) Hematocrit 42.0 % (39.0-53.0) Mean Corpuscular Volume 100 fL (79-100) Mean Corpuscular Hemoglobin 35 pg (25-35) Mean Corpuscular Hemoglobin Concent 35 g/dL (31-37) Red Cell Distribution Width 14.1 % (11.5-14.5) Platelet Count 156 x10^3/uL (140-400) Neutrophils (%) (Auto) 69 % (31-73) Lymphocytes (%) (Auto) 21 % (24-48) Monocytes (%) (Auto) 10 % (0-9) Eosinophils (%) (Auto) 0 % (0-3) Basophils (%) (Auto) 0 % (0-3) Neutrophils # (Auto) 5.3 x10^3/uL (1.8-7.7) Lymphocytes # (Auto) 1.6 x10^3/uL (1.0-4.8) Monocytes # (Auto) 0.8 x10^3/uL (0.0-1.1) Eosinophils # (Auto) 0.0 x10^3/uL (0.0-0.7) Basophils # (Auto) 0.0 x10^3/uL (0.0-0.2) Sodium Level 136 mmol/L (136-145) Potassium Level 3.5 mmol/L (3.5-5.1) Chloride Level 98 mmol/L (98-107) Carbon Dioxide Level 30 mmol/L (21-32) Anion Gap 8 (6-14) Blood Urea Nitrogen 11 mg/dL (8-26) Creatinine 1.1 mg/dL (0.7-1.3) Estimated GFR (Cockcroft-Gault) 71.8 BUN/Creatinine Ratio 10 (6-20) Glucose Level 121 mg/dL (70-99) Calcium Level 8.3 mg/dL (8.5-10.1) Magnesium Level 2.3 mg/dL (1.8-2.4) Total Bilirubin 1.2 mg/dL (0.2-1.0) Aspartate Amino Transf (AST/SGOT) 245 U/L (15-37) Alanine Aminotransferase (ALT/SGPT) 82 U/L (16-63) Alkaline Phosphatase 66 U/L (46-116) Creatine Kinase 898 U/L (39-308) Total Protein 6.7 g/dL (6.4-8.2) Albumin 3.0 g/dL (3.4-5.0) Albumin/Globulin Ratio 0.8 (1.0-1.7) Assessment/Plan Assessment/Plan Abnormal transaminase levels. Although he does drink excessively and we do not know his chronic liver history these elevations are likely related to his acute TX with significant CPK and troponin elevation suggesting acute muscle injury. However we must consider that he also has liver disease and so hepatitis screen and ultrasound have been ordered appropriately. He also has a positive drug screen but denies use of cocaine. History of GERD and Obrien's. We do not have the records but apparently has had endoscopies in the past which showed Obrien's which was "healing itself" on treatment and has been on omeprazole for years with good control of his reflux symptoms. Plan: Repeat liver function studies and do routine hepatitis screening and ultrasound as ordered. Continue PPI therapy. CHRISTINE MONGE MD Nov 03, 2019 15:52
[2019-11-03 19:05] VITALS: BP 124/82
[2019-11-03] MEDS: ATORVASTATIN CALCIUM 20 MG TABLET PO SCH (20:59)
[2019-11-03 23:00] VITALS: BP 115/59
[2019-11-04 03:02] VITALS: BP 129/81
[2019-11-04 05:16] LABS: ALBUMIN/GLOBULIN RATIO 0.8 (1.0-1.7); CALCIUM 8.4 mg/dL (8.5-10.1); CREATININE 1.2 mg/dL (0.7-1.3); GFR 64.9; POTASSIUM 3.7 mmol/L (3.5-5.1); TOTAL BILIRUBIN 1.1 mg/dL (0.2-1.0)
[2019-11-04 07:00] VITALS: BP 105/70
--- NOTE | 2019-11-04 08:00 | PDOC ---
PROGRESS NOTES History of Present Illness History of Present Illness VTE Prophylaxis Ordered VTE Prophylaxis Devices: No VTE Pharmacological Prophylaxi: Yes discharge dx Assessment/Plan impression Acute inferior wall TN, STEMI OM1 normal angiographic appearance. RCA MID 100% occlusion. RPDA ostial 80% stenosis. MORBID OBESITY THC ABUSE Alcohol abuse positive urine drug screen for cocaine TRANSAMINITIS, IMPROVING hepatic panel Gallbladder wall thickening due to gallbladder contraction. There are no secondary findings to suggest cholecystitis. BY us 11/03 PLAN ADMIT ICU BED LHC, Coronary angiography Complex PCI of the mid to distal RCA and PDA with aspiration thrombectomy consult cardiology cbc, comp, lipid panel, troponin i CIWA protocol heparin drip d/c effient URINE DRUG SCREEN pos THC, Cocaine out patient substance abuse therapy CA Okay for discharge from cardiac standpoint. ABD SONO, GI CONSULT 11/02 ACUTE DX HEPATITIS PANEL CXR SONO reviewed 11/03 d/c planning 34 min Vitals Vitals Vital Signs Date Time Temp Pulse Resp B/P (MAP) Pulse Ox O2 Delivery O2 Flow Rate FiO2 11/04/19 07:54 Room Air 11/04/19 07:00 97.5 73 16 105/70 (82) 99 97.5 11/04/19 03:02 2.0 Physical Exam General: Alert, Oriented X3, Cooperative, No acute distress Heart: Regular rate, Normal S1, Normal S2 Lungs: Clear Abdomen: Normal bowel sounds, Soft, No tenderness, No hepatosplenomegaly, No masses Extremities: No clubbing, No cyanosis, No edema Skin: No significant lesion Labs LABS EXAM: Abdomen sonogram. HISTORY: Transaminitis. TECHNIQUE: Sonographic imaging of the abdomen was performed. COMPARISON: None. FINDINGS: The liver is normal in size. There is hepatic steatosis. No focal hepatic lesion is seen. The common bile duct is normal in caliber. There is gallbladder wall thickening due to gallbladder contraction. There is no cholelithiasis or convincing cholecystitis. The kidneys are normal in size. The left kidney is difficult to assess due to bowel gas. The pancreas, aorta and vena cava are partially obscured due to bowel gas. The spleen is normal in size. IMPRESSION: 1. Hepatic steatosis. 2. Limited evaluation of the midline structures and left kidney due to bowel gas. 3. Gallbladder wall thickening due to gallbladder contraction. There are no secondary findings to suggest cholecystitis. Electronically signed by: Rae Floyd MD (11/04/2019 11:23 AM) [id number] DICTATED and SIGNED BY: RAE FLOYD MD Single AP view of the chest. Comparison: None. Indication: Angina Findings: The heart is enlarged. There is no pneumothorax or effusion. No air space or interstitial disease. Impression: 1. No acute cardiopulmonary process. 2. Cardiomegaly. Electronically signed by: Praveen Baker MD (11/03/2019 3:25 PM) [id number] DICTATED and SIGNED BY: PRAVEEN BAKER MD DATE: 11/03/191524 Laboratory Tests Test 11/04/19 04:15 Sodium Level 137 mmol/L (136-145) Potassium Level 3.7 mmol/L (3.5-5.1) Chloride Level 102 mmol/L (98-107) Carbon Dioxide Level 26 mmol/L (21-32) Anion Gap 9 (6-14) Blood Urea Nitrogen 13 mg/dL (8-26) Creatinine 1.2 mg/dL (0.7-1.3) Estimated GFR (Cockcroft-Gault) 64.9 BUN/Creatinine Ratio 11 (6-20) Glucose Level 108 mg/dL (70-99) Calcium Level 8.4 mg/dL (8.5-10.1) Total Bilirubin 1.1 mg/dL (0.2-1.0) Aspartate Amino Transf (AST/SGOT) 100 U/L (15-37) Alanine Aminotransferase (ALT/SGPT) 68 U/L (16-63) Alkaline Phosphatase 68 U/L (46-116) Creatine Kinase 292 U/L (39-308) Total Protein 7.0 g/dL (6.4-8.2) Albumin 3.0 g/dL (3.4-5.0) Albumin/Globulin Ratio 0.8 (1.0-1.7) Comment Review of Relevant I have reviewed the following items wei (where applicable) has been applied. Labs Laboratory Tests Test 11/02/19 10:10 11/02/19 16:00 11/03/19 05:00 11/04/19 04:15 White Blood Count 9.3 x10^3/uL (4.0-11.0) 7.8 x10^3/uL (4.0-11.0) Red Blood Count 4.44 x10^6/uL (4.30-5.70) 4.21 x10^6/uL (4.30-5.70) Hemoglobin 15.3 g/dL (13.0-17.5) 14.6 g/dL (13.0-17.5) Hematocrit 43.5 % (39.0-53.0) 42.0 % (39.0-53.0) Mean Corpuscular Volume 98 fL (79-100) 100 fL (79-100) Mean Corpuscular Hemoglobin 34 pg (25-35) 35 pg (25-35) Mean Corpuscular Hemoglobin Concent 35 g/dL (31-37) 35 g/dL (31-37) Red Cell Distribution Width 13.9 % (11.5-14.5) 14.1 % (11.5-14.5) Platelet Count 162 x10^3/uL (140-400) 156 x10^3/uL (140-400) Neutrophils (%) (Auto) 79 % (31-73) 69 % (31-73) Lymphocytes (%) (Auto) 10 % (24-48) 21 % (24-48) Monocytes (%) (Auto) 11 % (0-9) 10 % (0-9) Eosinophils (%) (Auto) 0 % (0-3) 0 % (0-3) Basophils (%) (Auto) 1 % (0-3) 0 % (0-3) Neutrophils # (Auto) 7.3 x10^3/uL (1.8-7.7) 5.3 x10^3/uL (1.8-7.7) Lymphocytes # (Auto) 1.0 x10^3/uL (1.0-4.8) 1.6 x10^3/uL (1.0-4.8) Monocytes # (Auto) 1.0 x10^3/uL (0.0-1.1) 0.8 x10^3/uL (0.0-1.1) Eosinophils # (Auto) 0.0 x10^3/uL (0.0-0.7) 0.0 x10^3/uL (0.0-0.7) Basophils # (Auto) 0.0 x10^3/uL (0.0-0.2) 0.0 x10^3/uL (0.0-0.2) Sodium Level 136 mmol/L (136-145) 136 mmol/L (136-145) 137 mmol/L (136-145) Potassium Level 3.7 mmol/L (3.5-5.1) 3.5 mmol/L (3.5-5.1) 3.7 mmol/L (3.5-5.1) Chloride Level 97 mmol/L (98-107) 98 mmol/L (98-107) 102 mmol/L (98-107) Carbon Dioxide Level 25 mmol/L (21-32) 30 mmol/L (21-32) 26 mmol/L (21-32) Anion Gap 14 (6-14) 8 (6-14) 9 (6-14) Blood Urea Nitrogen 10 mg/dL (8-26) 11 mg/dL (8-26) 13 mg/dL (8-26) Creatinine 0.9 mg/dL (0.7-1.3) 1.1 mg/dL (0.7-1.3) 1.2 mg/dL (0.7-1.3) Estimated GFR (Cockcroft-Gault) 90.4 71.8 64.9 BUN/Creatinine Ratio 11 (6-20) 10 (6-20) 11 (6-20) Glucose Level 122 mg/dL (70-99) 121 mg/dL (70-99) 108 mg/dL (70-99) Hemoglobin A1c 5.3 % (4.8-5.6) Calcium Level 8.1 mg/dL (8.5-10.1) 8.3 mg/dL (8.5-10.1) 8.4 mg/dL (8.5-10.1) Total Bilirubin 1.9 mg/dL (0.2-1.0) 1.2 mg/dL (0.2-1.0) 1.1 mg/dL (0.2-1.0) Aspartate Amino Transf (AST/SGOT) 679 U/L (15-37) 245 U/L (15-37) 100 U/L (15-37) Alanine Aminotransferase (ALT/SGPT) 110 U/L (16-63) 82 U/L (16-63) 68 U/L (16-63) Alkaline Phosphatase 73 U/L (46-116) 66 U/L (46-116) 68 U/L (46-116) Creatine Kinase 3256 U/L (39-308) 898 U/L (39-308) 292 U/L (39-308) Troponin I Quantitative 189.674 ng/mL (0.000-0.055) Total Protein 6.5 g/dL (6.4-8.2) 6.7 g/dL (6.4-8.2) 7.0 g/dL (6.4-8.2) Albumin 3.3 g/dL (3.4-5.0) 3.0 g/dL (3.4-5.0) 3.0 g/dL (3.4-5.0) Albumin/Globulin Ratio 1.0 (1.0-1.7) 0.8 (1.0-1.7) 0.8 (1.0-1.7) Triglycerides Level 145 mg/dL (0-150) Cholesterol Level 229 mg/dL (0-200) LDL Cholesterol, Calculated 131 mg/dL (0-100) VLDL Cholesterol, Calculated 29 mg/dL (0-40) Non-HDL Cholesterol Calculated 160 mg/dL (0-129) HDL Cholesterol 69 mg/dL (40-60) Cholesterol/HDL Ratio 3.3 Thyroid Stimulating Hormone (TSH) 2.471 uIU/mL (0.358-3.74) Urine Opiates Screen Pos (NEG) Urine Methadone Screen Neg (NEG) Urine Barbiturates Neg (NEG) Urine Phencyclidine Screen Neg (NEG) Urine Amphetamine/Methamphetamine Neg (NEG) Urine Benzodiazepines Screen Pos (NEG) Urine Cocaine Screen Pos (NEG) Urine Cannabinoids Screen Pos (NEG) Urine Ethyl Alcohol Neg (NEG) Magnesium Level 2.3 mg/dL (1.8-2.4) Laboratory Tests Test 11/04/19 04:15 Sodium Level 137 mmol/L (136-145) Potassium Level 3.7 mmol/L (3.5-5.1) Chloride Level 102 mmol/L (98-107) Carbon Dioxide Level 26 mmol/L (21-32) Anion Gap 9 (6-14) Blood Urea Nitrogen 13 mg/dL (8-26) Creatinine 1.2 mg/dL (0.7-1.3) Estimated GFR (Cockcroft-Gault) 64.9 BUN/Creatinine Ratio 11 (6-20) Glucose Level 108 mg/dL (70-99) Calcium Level 8.4 mg/dL (8.5-10.1) Total Bilirubin 1.1 mg/dL (0.2-1.0) Aspartate Amino Transf (AST/SGOT) 100 U/L (15-37) Alanine Aminotransferase (ALT/SGPT) 68 U/L (16-63) Alkaline Phosphatase 68 U/L (46-116) Creatine Kinase 292 U/L (39-308) Total Protein 7.0 g/dL (6.4-8.2) Albumin 3.0 g/dL (3.4-5.0) Albumin/Globulin Ratio 0.8 (1.0-1.7) Medications Current Medications Phenylephrine HCl (Wilfredo-Synephrine Inj) 10 mg STK-MED ONCE .ROUTE ; Start 11/02/19 at 05:55; Stop 11/02/19 at 05:55; Status DC Atropine Sulfate (ATROPINE 0.5mg SYRINGE) 0.5 mg STK-MED ONCE .ROUTE ; Start 11/02/19 at 05:55; Stop 11/02/19 at 05:55; Status DC Tirofiban/Sodium Chloride 100 ml @ As Directed STK-MED ONCE IV ; Start 11/02/19 at 05:58; Stop 11/02/19 at 05:59; Status DC Nitroglycerin (Nitroglycerin) 200 mcg 1X ONCE IART Last administered on 11/02/19at 06:15; Start 11/02/19 at 06:15; Stop 11/02/19 at 06:16; Status DC Verapamil HCl (Verapamil) 2.5 mg 1X ONCE IART Last administered on 11/02/19at 06:15; Start 11/02/19 at 06:15; Stop 11/02/19 at 06:16; Status DC Heparin Sodium (Porcine) (Heparin Sodium) 2,500 unit 1X ONCE IART Last administered on 11/02/19at 06:15; Start 11/02/19 at 06:15; Stop 11/02/19 at 06:16; Status DC Heparin Sodium/ Sodium Chloride (HEPARIN for ARTERIAL LINE FLUSH) 1,000 unit 1X ONCE IART Last administered on 11/02/19at 06:15; Start 11/02/19 at 06:15; Stop 11/02/19 at 06:16; Status DC Heparin Sodium/ Sodium Chloride (HEPARIN for ARTERIAL LINE FLUSH) 1,000 unit 1X ONCE IART Last administered on 11/02/19at 06:15; Start 11/02/19 at 06:15; Stop 11/02/19 at 06:16; Status DC Midazolam HCl (Versed) 2 mg 1X ONCE IV Last administered on 11/02/19at 06:15; Start 11/02/19 at 06:15; Stop 11/02/19 at 06:16; Status DC Fentanyl Citrate (Fentanyl 2ml Vial) 100 mcg 1X ONCE IV Last administered on 11/02/19at 06:15; Start 11/02/19 at 06:15; Stop 11/02/19 at 06:16; Status DC Iodixanol (Visipaque 320) 100 ml 1X ONCE IART Last administered on 11/02/19at 06:15; Start 11/02/19 at 06:15; Stop 11/02/19 at 06:16; Status DC Lidocaine HCl (Lidocaine 1% 20ml Vial) 20 ml 1X ONCE INJ Last administered on 11/02/19at 06:15; Start 11/02/19 at 06:15; Stop 11/02/19 at 06:16; Status DC Ondansetron HCl (Zofran) 4 mg STK-MED ONCE .ROUTE ; Start 11/02/19 at 06:12; Stop 11/02/19 at 06:12; Status DC Heparin Sodium (Porcine) (Heparin Sodium) 2,000 unit 1X ONCE IV Last administered on 11/02/19at 06:15; Start 11/02/19 at 06:15; Stop 11/02/19 at 06:21; Status DC Tirofiban/Sodium Chloride 100 ml @ 0 mls/hr CONT PRN IV PER PROTOCOL Last administered on 11/02/19at 20:36; Start 11/02/19 at 06:15; Stop 11/03/19 at 00:14; Status DC Nitroglycerin (Nitroglycerin) 200 mcg STK-MED ONCE .ROUTE ; Start 11/02/19 at 06:22; Stop 11/02/19 at 06:22; Status DC Nitroglycerin (Nitroglycerin) 200 mcg 1X ONCE IART Last administered on 11/02/19at 06:27; Start 11/02/19 at 06:30; Stop 11/02/19 at 06:31; Status DC Iodixanol (Visipaque 320) 100 ml STK-MED ONCE .ROUTE ; Start 11/02/19 at 06:25; Stop 11/02/19 at 06:25; Status DC Ondansetron HCl (Zofran) 4 mg 1X ONCE IVP Last administered on 11/02/19at 06:30; Start 11/02/19 at 06:30; Stop 11/02/19 at 06:31; Status DC Fentanyl Citrate (Fentanyl 2ml Vial) 100 mcg STK-MED ONCE .ROUTE ; Start 11/02/19 at 06:35; Stop 11/02/19 at 06:35; Status DC Fentanyl Citrate (Fentanyl 2ml Vial) 100 mcg 1X ONCE IV Last administered on 11/02/19at 06:45; Start 11/02/19 at 06:45; Stop 11/02/19 at 06:46; Status DC Prasugrel (Effient) 60 mg 1X ONCE PO Last administered on 11/02/19at 07:00; Start 11/02/19 at 06:45; Stop 11/02/19 at 06:50; Status DC Prasugrel (Effient) 10 mg STK-MED ONCE .ROUTE ; Start 11/02/19 at 06:52; Stop 11/02/19 at 06:52; Status DC Ondansetron HCl (Zofran) 4 mg PRN Q4HRS PRN IV NAUSEA/VOMITING; Start 11/02/19 at 07:45; Stop 11/02/19 at 10:28; Status DC Acetaminophen (Tylenol) 650 mg PRN Q4HRS PRN PO TEMP OVER 100.4F OR MILD PAIN; Start 11/02/19 at 07:45; Stop 11/02/19 at 10:27; Status DC Multivitamins (Thera M Plus) 1 tab DAILY PO Last administered on 11/03/19at 08:25; Start 11/02/19 at 12:00 Folic Acid (Folic Acid) 1 mg DAILY PO Last administered on 11/03/19at 08:24; Start 11/02/19 at 12:00 Thiamine Mononitrate (Vitamin B-1) 100 mg DAILY PO Last administered on 11/03/19at 08:26; Start 11/02/19 at 12:00 Lorazepam (Ativan) 4 mg PRN Q1HR PRN PO For CIWA 8-14; Start 11/02/19 at 10:15 Lorazepam (Ativan) 8 mg PRN Q1HR PRN PO For CIWA 15 or greater; Start 11/02/19 at 10:15 Lorazepam (Ativan Inj) 2 mg PRN Q1HR PRN IV For CIWA 8-14; Start 11/02/19 at 10:15; Status Cancel Lorazepam (Ativan Inj) 4 mg PRN Q1HR PRN IV For CIWA 15 or greater; Start 11/02/19 at 10:15; Status Cancel Haloperidol Lactate (Haldol Inj) 5 mg PRN Q4HRS PRN IVP Hallu cinatns,Confusn,Delirium; Start 11/02/19 at 10:15 Lorazepam (Ativan Inj) 2 mg PRN Q15MIN PRN IV SEE COMMENTS; Start 11/02/19 at 10:15 Lorazepam (Ativan Inj) 4 mg PRN Q15MIN PRN IV SEE COMMENTS; Start 11/02/19 at 10:15 Oxycodone HCl (Roxicodone) 5 mg PRN Q3HRS PRN PO SEVERE PAIN 7-10; Start 11/02/19 at 10:15 Acetaminophen (Tylenol) 650 mg PRN Q6HRS PRN PO Headaches, Temp > 101.5'; Start 11/02/19 at 10:15 Lorazepam (Ativan Inj) 0.5 mg PRN Q6HRS PRN IVP ANXIETY / AGITATION; Start 11/02/19 at 10:15 Lorazepam (Ativan) 1 mg PRN Q6HRS PRN PO ANXIETY / AGITATION; Start 11/02/19 at 10:15 Ondansetron HCl (Zofran) 4 mg PRN Q6HRS PRN IVP NAUSEA/VOMITING; Start 11/02/19 at 10:15 Prochlorperazine (Compazine) 25 mg PRN Q12HR PRN VT NAUSEA/VOMITING; Start 11/02/19 at 10:15 Al Hydroxide/Mg Hydroxide (Mylanta Plus Xs) 30 ml PRN Q3HRS PRN PO HEARTBURN / GAS; Start 11/02/19 at 10:15 Calcium Carbonate/ Glycine (Tums) 500 mg PRN Q3HRS PRN PO HEARTBURN / GAS; Start 11/02/19 at 10:15 Famotidine (Pepcid) 20 mg BID PO Last administered on 11/03/19at 20:58; Start 11/02/19 at 21:00 Zolpidem Tartrate (Ambien) 5 mg PRN QHS PRN PO INSOMNIA, MAY REPEAT IN 1HR; Start 11/02/19 at 10:15 Info (Icu Electrolyte Protocol) 1 ea DAILY MC ; Start 11/03/19 at 09:00 Sodium Chloride (Normal Saline Flush) 3 ml QSHIFT PRN IV AFTER MEDS AND BLOOD DRAWS; Start 11/02/19 at 10:15 Acetaminophen/ Hydrocodone Bitart (Lortab 5/325) 1 tab PRN Q4HRS PRN PO MILD PAIN 1-3; Start 11/02/19 at 10:15 Docusate Sodium (Colace) 100 mg BID PO Last administered on 11/03/19at 20:58; Start 11/02/19 at 21:00 Magnesium Hydroxide (Milk Of Magnesia) 2,400 mg PRN Q12HR PRN PO CONSTIPATION; Start 11/02/19 at 10:15 Bisacodyl (Dulcolax Supp) 10 mg PRN DAILY PRN VT CONSTIPATION; Start 11/02/19 at 10:15 Atorvastatin Calcium (Lipitor) 20 mg QHS PO Last administered on 11/03/19at 20:59; Start 11/02/19 at 21:00 Metoprolol Tartrate (Lopressor) 12.5 mg BID PO Last administered on 11/03/19at 20:59; Start 11/02/19 at 21:00 Aspirin (Ecotrin) 81 mg DAILYWBKFT PO Last administered on 11/03/19at 08:24; Start 11/03/19 at 08:00 Prasugrel (Effient) 10 mg DAILYWBKFT PO Last administered on 11/03/19at 08:24; Start 11/03/19 at 08:00 Active Scripts Active Reported Omeprazole 20 Mg Capsule. 1 Cap PO DAILY Vitals/I & O Vital Sign - Last 24 Hours 11/03/19 11/03/19 11/03/19 11/03/19 08:25 11:00 12:00 15:00 Temp 98.5 98.4 98.5 98.4 Pulse 75 73 65 B/P (MAP) 119/70 110/70 (83) 115/74 (88) Pulse Ox 98 98 O2 Delivery Room Air Room Air Room Air 11/03/19 11/03/19 11/03/19 11/03/19 15:52 17:25 19:05 19:09 Temp 98.8 98.8 Pulse 81 Resp 16 B/P (MAP) 124/82 (96) Pulse Ox 99 O2 Delivery Room Air Room Air Room Air Room Air O2 Flow Rate 2.0 11/03/19 11/03/19 11/04/19 11/04/19 20:59 23:00 03:02 07:00 Temp 99.2 99.0 97.5 99.2 99.0 97.5 Pulse 74 79 84 73 Resp 16 16 16 B/P (MAP) 124/82 115/59 (77) 129/81 (97) 105/70 (82) Pulse Ox 97 97 99 O2 Delivery Room Air Room Air Room Air O2 Flow Rate 2.0 11/04/19 07:54 O2 Delivery Room Air Intake and Output 11/03/19 11/03/19 11/04/19 15:00 23:00 07:00 Output Total 700 ml 2 ml Balance -700 ml -2 ml Justicifation of Admission Dx: Justifications for Admission: Justification of Admission Dx: Yes TN: Acute NSTEMI ARTURO SOUSA MD Nov 04, 2019 08:00
[2019-11-04] MEDS: ELECTROLYTE (ICU) PROTOCOL. MC SCH (08:50)
[2019-11-04] MEDS: DOCUSATE SODIUM 100 MG CAPSULE. PO SCH (09:00)
[2019-11-04 11:00] VITALS: BP 128/81
--- NOTE | 2019-11-04 11:26 | RAD ---
EXAM: Abdomen sonogram. HISTORY: Transaminitis. TECHNIQUE: Sonographic imaging of the abdomen was performed. COMPARISON: None. FINDINGS: The liver is normal in size. There is hepatic steatosis. No focal hepatic lesion is seen. The common bile duct is normal in caliber. There is gallbladder wall thickening due to gallbladder contraction. There is no cholelithiasis or convincing cholecystitis. The kidneys are normal in size. The left kidney is difficult to assess due to bowel gas. The pancreas, aorta and vena cava are partially obscured due to bowel gas. The spleen is normal in size. IMPRESSION: 1. Hepatic steatosis. 2. Limited evaluation of the midline structures and left kidney due to bowel gas. 3. Gallbladder wall thickening due to gallbladder contraction. There are no secondary findings to suggest cholecystitis. Electronically signed by: Rae Dyer MD (11/04/2019 11:23 AM) [id number]
[2019-11-04] MEDS: FAMOTIDINE 20 MG TABLET. PO SCH (11:41)
[2019-11-04 11:42] VITALS: BP 128/81
[2019-11-04] MEDS: MULTIVITAMIN with MINERAL TABLET. PO SCH (11:42)
[2019-11-04] MEDS: METOPROLOL TART IMMED RELEASE 25 MG TABLET. PO SCH (11:42)
[2019-11-04] MEDS: ASPIRIN ENTERIC COATED 81 MG TABLET.DR. PO SCH (11:42)
[2019-11-04] MEDS: PRASUGREL 10 MG TABLET. PO SCH (11:42)
[2019-11-04] MEDS: THIAMINE 100 MG TABLET. PO SCH (11:42)
[2019-11-04] MEDS: FOLIC ACID 1 MG TABLET. PO SCH (11:42)
--- NOTE | 2019-11-04 12:29 | PDOC3 ---
Discharge Summary Date of Admission: Nov 02, 2019 Date of Discharge: Nov 04, 2019 Follow-Up: 3-5 days Admitting Diagnosis comment: discharge dx Assessment/Plan impression Acute inferior wall VT, // STEMI OM1 normal angiographic appearance. RCA MID 100% occlusion. RPDA ostial 80% stenosis. MORBID OBESITY THC ABUSE Alcohol abuse positive urine drug screen for cocaine TRANSAMINITIS, IMPROVING hepatic panel Gallbladder wall thickening due to gallbladder contraction. There are no s econdary findings to suggest cholecystitis. BY us 11/03 PLAN ADMIT ICU BED LHC, Coronary angiography Complex PCI of the mid to distal RCA and PDA with aspiration thrombectomy consult cardiology cbc, comp, lipid panel, troponin i CIWA protocol heparin drip d/c effient URINE DRUG SCREEN pos THC, Cocaine out patient substance abuse therapy CA Okay for discharge from cardiac standpoint. ABD SONO, GI CONSULT 11/02 ACUTE DX HEPATITIS PANEL CXR SONO reviewed 11/03 d/c planning 34 min Vitals Vitals Vital Signs Date Time Temp Pulse Resp B/P (MAP) Pulse Ox O2 Delivery O2 Flow Rate FiO2 11/04/19 07:54 Room Air 11/04/19 07:00 97.5 73 16 105/70 (82) 99 97.5 11/04/19 03:02 2.0 Physical Exam General: Alert, Oriented X3, Cooperative, No acute distress Heart: Regular rate, Normal S1, Normal S2 Lungs: Clear Abdomen: Normal bowel sounds, Soft, No tenderness, No hepatosplenomegaly, No masses Extremities: No clubbing, No cyanosis, No edema Skin: No significant lesion Labs LABS EXAM: Abdomen sonogram. HISTORY: Transaminitis. TECHNIQUE: Sonographic imaging of the abdomen was performed. COMPARISON: None. FINDINGS: The liver is normal in size. There is hepatic steatosis. No focal hepatic lesion is seen. The common bile duct is normal in caliber. There is gallbladder wall thickening due to gallbladder contraction. There is no cholelithiasis or convincing cholecystitis. The kidneys are normal in size. The left kidney is difficult to assess due to bowel gas. The pancreas, aorta and vena cava are partially obscured due to bowel gas. The spleen is normal in size. IMPRESSION: 1. Hepatic steatosis. 2. Limited evaluation of the midline structures and left kidney due to bowel gas. 3. Gallbladder wall thickening due to gallbladder contraction. There are no secondary findings to suggest cholecystitis. Electronically signed by: Rae Floyd MD (11/04/2019 11:23 AM) [id number] DICTATED and SIGNED BY: RAE FLOYD MD Single AP view of the chest. Comparison: None. Indication: Angina Findings: The heart is enlarged. There is no pneumothorax or effusion. No air space or interstitial disease. Impression: 1. No acute cardiopulmonary process. 2. Cardiomegaly. Electronically signed by: Praveen Baker MD (11/03/2019 3:25 PM) [id number] DICTATED and SIGNED BY: PRAVEEN BAKER MD Brief Hospital Course Mr. Joshi is a 48 old [sex] who presented with [ stemi ] CONDITION AT DISCHARGE: Improved Discharge Medications Current Medications Phenylephrine HCl (Wilfredo-Synephrine Inj) 10 mg STK-MED ONCE .ROUTE ; Start 11/02/19 at 05:55; Stop 11/02/19 at 05:55; Status DC Atropine Sulfate (ATROPINE 0.5mg SYRINGE) 0.5 mg STK-MED ONCE .ROUTE ; Start 11/02/19 at 05:55; Stop 11/02/19 at 05:55; Status DC Tirofiban/Sodium Chloride 100 ml @ As Directed STK-MED ONCE IV ; Start 11/02/19 at 05:58; Stop 11/02/19 at 05:59; Status DC Nitroglycerin (Nitroglycerin) 200 mcg 1X ONCE IART Last administered on 11/02/19at 06:15; Start 11/02/19 at 06:15; Stop 11/02/19 at 06:16; Status DC Verapamil HCl (Verapamil) 2.5 mg 1X ONCE IART Last administered on 11/02/19at 06:15; Start 11/02/19 at 06:15; Stop 11/02/19 at 06:16; Status DC Heparin Sodium (Porcine) (Heparin Sodium) 2,500 unit 1X ONCE IART Last administered on 11/02/19at 06:15; Start 11/02/19 at 06:15; Stop 11/02/19 at 06:16; Status DC Heparin Sodium/ Sodium Chloride (HEPARIN for ARTERIAL LINE FLUSH) 1,000 unit 1X ONCE IART Last administered on 11/02/19at 06:15; Start 11/02/19 at 06:15; Stop 11/02/19 at 06:16; Status DC Heparin Sodium/ Sodium Chloride (HEPARIN for ARTERIAL LINE FLUSH) 1,000 unit 1X ONCE IART Last administered on 11/02/19at 06:15; Start 11/02/19 at 06:15; Stop 11/02/19 at 06:16; Status DC Midazolam HCl (Versed) 2 mg 1X ONCE IV Last administered on 11/02/19at 06:15; Start 11/02/19 at 06:15; Stop 11/02/19 at 06:16; Status DC Fentanyl Citrate (Fentanyl 2ml Vial) 100 mcg 1X ONCE IV Last administered on 11/02/19at 06:15; Start 11/02/19 at 06:15; Stop 11/02/19 at 06:16; Status DC Iodixanol (Visipaque 320) 100 ml 1X ONCE IART Last administered on 11/02/19at 06:15; Start 11/02/19 at 06:15; Stop 11/02/19 at 06:16; Status DC Lidocaine HCl (Lidocaine 1% 20ml Vial) 20 ml 1X ONCE INJ Last administered on 11/02/19at 06:15; Start 11/02/19 at 06:15; Stop 11/02/19 at 06:16; Status DC Ondansetron HCl (Zofran) 4 mg STK-MED ONCE .ROUTE ; Start 11/02/19 at 06:12; Stop 11/02/19 at 06:12; Status DC Heparin Sodium (Porcine) (Heparin Sodium) 2,000 unit 1X ONCE IV Last administered on 11/02/19at 06:15; Start 11/02/19 at 06:15; Stop 11/02/19 at 06:21; Status DC Tirofiban/Sodium Chloride 100 ml @ 0 mls/hr CONT PRN IV PER PROTOCOL Last administered on 11/02/19at 20:36; Start 11/02/19 at 06:15; Stop 11/03/19 at 00:14; Status DC Nitroglycerin (Nitroglycerin) 200 mcg STK-MED ONCE .ROUTE ; Start 11/02/19 at 06:22; Stop 11/02/19 at 06:22; Status DC Nitroglycerin (Nitroglycerin) 200 mcg 1X ONCE IART Last administered on 11/02/19at 06:27; Start 11/02/19 at 06:30; Stop 11/02/19 at 06:31; Status DC Iodixanol (Visipaque 320) 100 ml STK-MED ONCE .ROUTE ; Start 11/02/19 at 06:25; Stop 11/02/19 at 06:25; Status DC Ondansetron HCl (Zofran) 4 mg 1X ONCE IVP Last administered on 11/02/19at 06:30; Start 11/02/19 at 06:30; Stop 11/02/19 at 06:31; Status DC Fentanyl Citrate (Fentanyl 2ml Vial) 100 mcg STK-MED ONCE .ROUTE ; Start 11/02/19 at 06:35; Stop 11/02/19 at 06:35; Status DC Fentanyl Citrate (Fentanyl 2ml Vial) 100 mcg 1X ONCE IV Last administered on 11/02/19at 06:45; Start 11/02/19 at 06:45; Stop 11/02/19 at 06:46; Status DC Prasugrel (Effient) 60 mg 1X ONCE PO Last administered on 11/02/19at 07:00; Start 11/02/19 at 06:45; Stop 11/02/19 at 06:50; Status DC Prasugrel (Effient) 10 mg STK-MED ONCE .ROUTE ; Start 11/02/19 at 06:52; Stop 11/02/19 at 06:52; Status DC Ondansetron HCl (Zofran) 4 mg PRN Q4HRS PRN IV NAUSEA/VOMITING; Start 11/02/19 at 07:45; Stop 11/02/19 at 10:28; Status DC Acetaminophen (Tylenol) 650 mg PRN Q4HRS PRN PO TEMP OVER 100.4F OR MILD PAIN; Start 11/02/19 at 07:45; Stop 11/02/19 at 10:27; Status DC Multivitamins (Thera M Plus) 1 tab DAILY PO Last administered on 11/04/19at 11:42; Start 11/02/19 at 12:00 Folic Acid (Folic Acid) 1 mg DAILY PO Last administered on 11/04/19at 11:42; Start 11/02/19 at 12:00 Thiamine Mononitrate (Vitamin B-1) 100 mg DAILY PO Last administered on 11/04/19at 11:42; Start 11/02/19 at 12:00 Lorazepam (Ativan) 4 mg PRN Q1HR PRN PO For CIWA 8-14; Start 11/02/19 at 10:15 Lorazepam (Ativan) 8 mg PRN Q1HR PRN PO For CIWA 15 or greater; Start 11/02/19 at 10:15 Lorazepam (Ativan Inj) 2 mg PRN Q1HR PRN IV For CIWA 8-14; Start 11/02/19 at 10:15; Status Cancel Lorazepam (Ativan Inj) 4 mg PRN Q1HR PRN IV For CIWA 15 or greater; Start 11/02/19 at 10:15; Status Cancel Haloperidol Lactate (Haldol Inj) 5 mg PRN Q4HRS PRN IVP Marvin lucinatns,Confusn,Delirium; Start 11/02/19 at 10:15 Lorazepam (Ativan Inj) 2 mg PRN Q15MIN PRN IV SEE COMMENTS; Start 11/02/19 at 10:15 Lorazepam (Ativan Inj) 4 mg PRN Q15MIN PRN IV SEE COMMENTS; Start 11/02/19 at 10:15 Oxycodone HCl (Roxicodone) 5 mg PRN Q3HRS PRN PO SEVERE PAIN 7-10; Start 11/02/19 at 10:15 Acetaminophen (Tylenol) 650 mg PRN Q6HRS PRN PO Headaches, Temp > 101.5'; Start 11/02/19 at 10:15 Lorazepam (Ativan Inj) 0.5 mg PRN Q6HRS PRN IVP ANXIETY / AGITATION; Start 11/02/19 at 10:15 Lorazepam (Ativan) 1 mg PRN Q6HRS PRN PO ANXIETY / AGITATION; Start 11/02/19 at 10:15 Ondansetron HCl (Zofran) 4 mg PRN Q6HRS PRN IVP NAUSEA/VOMITING; Start 11/02/19 at 10:15 Prochlorperazine (Compazine) 25 mg PRN Q12HR PRN SC NAUSEA/VOMITING; Start 11/02/19 at 10:15 Al Hydroxide/Mg Hydroxide (Mylanta Plus Xs) 30 ml PRN Q3HRS PRN PO HEARTBURN / GAS; Start 11/02/19 at 10:15 Calcium Carbonate/ Glycine (Tums) 500 mg PRN Q3HRS PRN PO HEARTBURN / GAS; Start 11/02/19 at 10:15 Famotidine (Pepcid) 20 mg BID PO Last administered on 11/04/19at 11:41; Start 11/02/19 at 21:00 Zolpidem Tartrate (Ambien) 5 mg PRN QHS PRN PO INSOMNIA, MAY REPEAT IN 1HR; Start 11/02/19 at 10:15 Info (Icu Electrolyte Protocol) 1 ea DAILY MC ; Start 11/03/19 at 09:00 Sodium Chloride (Normal Saline Flush) 3 ml QSHIFT PRN IV AFTER MEDS AND BLOOD DRAWS; Start 11/02/19 at 10:15 Acetaminophen/ Hydrocodone Bitart (Lortab 5/325) 1 tab PRN Q4HRS PRN PO MILD PAIN 1-3; Start 11/02/19 at 10:15 Docusate Sodium (Colace) 100 mg BID PO Last administered on 11/03/19at 20:58; Start 11/02/19 at 21:00 Magnesium Hydroxide (Milk Of Magnesia) 2,400 mg PRN Q12HR PRN PO CONSTIPATION; Start 11/02/19 at 10:15 Bisacodyl (Dulcolax Supp) 10 mg PRN DAILY PRN SC CONSTIPATION; Start 11/02/19 at 10:15 Atorvastatin Calcium (Lipitor) 20 mg QHS PO Last administered on 11/03/19at 20:59; Start 11/02/19 at 21:00 Metoprolol Tartrate (Lopressor) 12.5 mg BID PO Last administered on 11/04/19at 11:42; Start 11/02/19 at 21:00 Aspirin (Ecotrin) 81 mg DAILYWBKFT PO Last administered on 11/04/19at 11:42; Start 11/03/19 at 08:00 Prasugrel (Effient) 10 mg DAILYWBKFT PO Last administered on 11/04/19at 11:42; Start 11/03/19 at 08:00 Active Scripts Active Reported Omeprazole 20 Mg Capsule.dr 1 Cap PO DAILY Vital Signs Vital Signs Date Time Temp Pulse Resp B/P (MAP) Pulse Ox O2 Delivery O2 Flow Rate FiO2 11/04/19 11:42 71 128/81 11/04/19 11:00 96.9 16 100 Room Air 96.9 11/04/19 03:02 2.0 Labs Laboratory Tests Test 11/02/19 16:00 11/03/19 05:00 11/04/19 04:15 Urine Opiates Screen Pos (NEG) Urine Methadone Screen Neg (NEG) Urine Barbiturates Neg (NEG) Urine Phencyclidine Screen Neg (NEG) Urine Amphetamine/Methamphetamine Neg (NEG) Urine Benzodiazepines Screen Pos (NEG) Urine Cocaine Screen Pos (NEG) Urine Cannabinoids Screen Pos (NEG) Urine Ethyl Alcohol Neg (NEG) White Blood Count 7.8 x10^3/uL (4.0-11.0) Red Blood Count 4.21 x10^6/uL (4.30-5.70) Hemoglobin 14.6 g/dL (13.0-17.5) Hematocrit 42.0 % (39.0-53.0) Mean Corpuscular Volume 100 fL (79-100) Mean Corpuscular Hemoglobin 35 pg (25-35) Mean Corpuscular Hemoglobin Concent 35 g/dL (31-37) Red Cell Distribution Width 14.1 % (11.5-14.5) Platelet Count 156 x10^3/uL (140-400) Neutrophils (%) (Auto) 69 % (31-73) Lymphocytes (%) (Auto) 21 % (24-48) Monocytes (%) (Auto) 10 % (0-9) Eosinophils (%) (Auto) 0 % (0-3) Basophils (%) (Auto) 0 % (0-3) Neutrophils # (Auto) 5.3 x10^3/uL (1.8-7.7) Lymphocytes # (Auto) 1.6 x10^3/uL (1.0-4.8) Monocytes # (Auto) 0.8 x10^3/uL (0.0-1.1) Eosinophils # (Auto) 0.0 x10^3/uL (0.0-0.7) Basophils # (Auto) 0.0 x10^3/uL (0.0-0.2) Sodium Level 136 mmol/L (136-145) 137 mmol/L (136-145) Potassium Level 3.5 mmol/L (3.5-5.1) 3.7 mmol/L (3.5-5.1) Chloride Level 98 mmol/L (98-107) 102 mmol/L (98-107) Carbon Dioxide Level 30 mmol/L (21-32) 26 mmol/L (21-32) Anion Gap 8 (6-14) 9 (6-14) Blood Urea Nitrogen 11 mg/dL (8-26) 13 mg/dL (8-26) Creatinine 1.1 mg/dL (0.7-1.3) 1.2 mg/dL (0.7-1.3) Estimated GFR (Cockcroft-Gault) 71.8 64.9 BUN/Creatinine Ratio 10 (6-20) 11 (6-20) Glucose Level 121 mg/dL (70-99) 108 mg/dL (70-99) Calcium Level 8.3 mg/dL (8.5-10.1) 8.4 mg/dL (8.5-10.1) Magnesium Level 2.3 mg/dL (1.8-2.4) Total Bilirubin 1.2 mg/dL (0.2-1.0) 1.1 mg/dL (0.2-1.0) Aspartate Amino Transf (AST/SGOT) 245 U/L (15-37) 100 U/L (15-37) Alanine Aminotransferase (ALT/SGPT) 82 U/L (16-63) 68 U/L (16-63) Alkaline Phosphatase 66 U/L (46-116) 68 U/L (46-116) Creatine Kinase 898 U/L (39-308) 292 U/L (39-308) Total Protein 6.7 g/dL (6.4-8.2) 7.0 g/dL (6.4-8.2) Albumin 3.0 g/dL (3.4-5.0) 3.0 g/dL (3.4-5.0) Albumin/Globulin Ratio 0.8 (1.0-1.7) 0.8 (1.0-1.7) Laboratory Tests Test 11/04/19 04:15 Sodium Level 137 mmol/L (136-145) Potassium Level 3.7 mmol/L (3.5-5.1) Chloride Level 102 mmol/L (98-107) Carbon Dioxide Level 26 mmol/L (21-32) Anion Gap 9 (6-14) Blood Urea Nitrogen 13 mg/dL (8-26) Creatinine 1.2 mg/dL (0.7-1.3) Estimated GFR (Cockcroft-Gault) 64.9 BUN/Creatinine Ratio 11 (6-20) Glucose Level 108 mg/dL (70-99) Calcium Level 8.4 mg/dL (8.5-10.1) Total Bilirubin 1.1 mg/dL (0.2-1.0) Aspartate Amino Transf (AST/SGOT) 100 U/L (15-37) Alanine Aminotransferase (ALT/SGPT) 68 U/L (16-63) Alkaline Phosphatase 68 U/L (46-116) Creatine Kinase 292 U/L (39-308) Total Protein 7.0 g/dL (6.4-8.2) Albumin 3.0 g/dL (3.4-5.0) Albumin/Globulin Ratio 0.8 (1.0-1.7) Allergies Allergies Coded Allergies Type Severity Reaction Last Updated Verified No Known Drug Allergies 11/02/19 No Disposition/Orders: D/C to Home Justicifation of Admission Dx: Justifications for Admission: Justification of Admission Dx: Yes VT: Acute NSTEMI ARTURO SOUSA MD Nov 04, 2019 12:29
[2019-11-04] MEDS ORDERED: MAG30ORA2 PO (12:33)
[2019-11-04] MEDS ORDERED: ATOR20TA58 PO (12:33)
[2019-11-04] MEDS ORDERED: METO25TA4 PO (12:33)
[2019-11-04] MEDS ORDERED: MULT1TAB90 PO (12:33)
[2019-11-04] MEDS ORDERED: PRAS10TA9 PO (12:33)
[2019-11-04] MEDS ORDERED: FAMO20TA5 PO (12:33)
[2019-11-04] MEDS ORDERED: DOCU-153 PO (12:33)
[2019-11-04] MEDS ORDERED: ACET325T9 PO (12:33)
[2019-11-04] MEDS ORDERED: THIA100T22 PO (12:33)
[2019-11-04] MEDS ORDERED: Folic Acid PO (12:33)
--- NOTE | 2019-11-04 12:34 | DISCH ---
DISCHARGE INSTRUCTIONS Condition on Discharge Condition on Discharge: Stable Activity After Discharge Activity Instructions for Disc: Activity as tolerated Lifting Instructions after Dis: No heavy lifting, No pulling or pushing Driving Instructions after Dis: Do not drive today Diet after Discharge Diet after Discharge: Cardiac Checks after Discharge Checks after discharge: Check blood press - daily Contacting the DRRatna after DC Call your doctor for: If your condition worsens Warfarin Follow-Up Warfarin Follow UP: see cardiology soon as well as pcp NO COCAINE USE ARTURO SOUSA MD Nov 04, 2019 12:34
--- NOTE | 2019-11-04 12:47 | PDOC ---
PROGRESS NOTES Subjective Subjective Patient denied any chest pain or shortness of breath Objective Objective Vital Signs Date Time Temp Pulse Resp B/P (MAP) Pulse Ox O2 Delivery O2 Flow Rate FiO2 11/04/19 11:42 71 128/81 11/04/19 11:00 96.9 16 100 Room Air 96.9 11/04/19 03:02 2.0 Intake and Output 11/04/19 07:00 Output Total 702 ml Balance -702 ml Output Urine Total 702 ml Physical Exam Abdomen: Normal bowel sounds, Soft, No tenderness, No hepatosplenomegaly, No masses Heart: Regular rate, Normal S1, Normal S2 Extremities: No clubbing, No cyanosis, No edema General: Alert, Oriented X3, Cooperative, No acute distress HEENT: Atraumatic Lungs: Clear to auscultation Neuro: Normal speech Psych/Mental Status: Mental status NL, Mood NL Skin: No significant lesion Assessment Assessment 1. Acute inferior STEMI s/p PCI/PIPO to RCA, currently stable and chest pain- free. Telemetry did not show any significant arrhythmias. 2D echo showed LVEF 50 to 55%. Continue current medications including dual antiplatelet therapy. Will consider initiation of statins as an outpatient since patient had acute transaminitis on admission. Patient getting abdominal ultrasound today. 2. Cocaine use: Advised on complete cessation Okay for discharge from cardiac standpoint. Follow-up with our office in 1 month. Comment Review of Relevant I have reviewed the following items wei (where applicable) has been applied. Labs Laboratory Tests Test 11/04/19 04:15 Sodium Level 137 mmol/L (136-145) Potassium Level 3.7 mmol/L (3.5-5.1) Chloride Level 102 mmol/L (98-107) Carbon Dioxide Level 26 mmol/L (21-32) Anion Gap 9 (6-14) Blood Urea Nitrogen 13 mg/dL (8-26) Creatinine 1.2 mg/dL (0.7-1.3) Estimated GFR (Cockcroft-Gault) 64.9 BUN/Creatinine Ratio 11 (6-20) Glucose Level 108 mg/dL (70-99) Calcium Level 8.4 mg/dL (8.5-10.1) Total Bilirubin 1.1 mg/dL (0.2-1.0) Aspartate Amino Transf (AST/SGOT) 100 U/L (15-37) Alanine Aminotransferase (ALT/SGPT) 68 U/L (16-63) Alkaline Phosphatase 68 U/L (46-116) Creatine Kinase 292 U/L (39-308) Total Protein 7.0 g/dL (6.4-8.2) Albumin 3.0 g/dL (3.4-5.0) Albumin/Globulin Ratio 0.8 (1.0-1.7) Vitals/I & O Vital Sign - Last 24 Hours 11/03/19 11/03/19 11/03/19 11/03/19 15:00 15:52 17:25 19:05 Temp 98.4 98.8 98.4 98.8 Pulse 65 81 Resp 16 B/P (MAP) 115/74 (88) 124/82 (96) Pulse Ox 98 99 O2 Delivery Room Air Room Air Room Air Room Air O2 Flow Rate 2.0 11/03/19 11/03/19 11/03/19 11/04/19 19:09 20:59 23:00 03:02 Temp 99.2 99.0 99.2 99.0 Pulse 74 79 84 Resp 16 16 B/P (MAP) 124/82 115/59 (77) 129/81 (97) Pulse Ox 97 97 O2 Delivery Room Air Room Air Room Air O2 Flow Rate 2.0 11/04/19 11/04/19 11/04/19 11/04/19 07:00 07:54 11:00 11:42 Temp 97.5 96.9 97.5 96.9 Pulse 73 71 71 Resp 16 16 B/P (MAP) 105/70 (82) 128/81 (97) 128/81 Pulse Ox 99 100 O2 Delivery Room Air Room Air Room Air Intake and Output 11/03/19 11/03/19 11/04/19 15:00 23:00 07:00 Output Total 700 ml 2 ml Balance -700 ml -2 ml SVETLANA MARLEY MD Nov 04, 2019 12:47
[2019-11-04] MEDS ORDERED: ASPI-630 PO (13:45)
--- NOTE | 2019-11-04 14:20 | NUR ---
Discharge Note: MERRY GROVES Discharge instructions and discharge home medications reviewed with Patient and a copy given. All questions have been answered and understanding verbalized. Cath site clean, dry, intact upon discharge. No complaints of chest pain or shortness of breath. Follow up appointment information provided to patient. The following instructions and handouts were given: new medications, cardiac cath after care, myocardial infarction, and cardiac rehab. Discontinued lines and drains: Peripheral IV intact. Patient discharged to Home or Self Care with Self via Wheelchair
== END 2019-11-04 14:30 | disposition home or self-care (01) | DRG 247 ==
LOC: 1 WEST ICU 05:35 → 2 NORTH 11-03 17:13
PROVIDERS: ADMIT Internal Medicine; ATTEND Internal Medicine
PROC: 027035Z Dilation of Coronary Artery, One Artery with Two Drug-eluting Intraluminal Devices, Percutaneous Approach (ICD-10-PCS; principal; 2019-11-02)
PROC: 02C03ZZ Extirpation of Matter from Coronary Artery, One Artery, Percutaneous Approach (ICD-10-PCS; 2019-11-02)
PROC: 4A023N7 Measurement of Cardiac Sampling and Pressure, Left Heart, Percutaneous Approach (ICD-10-PCS; 2019-11-02)
PROC: B2111ZZ Fluoroscopy of Multiple Coronary Arteries using Low Osmolar Contrast (ICD-10-PCS; 2019-11-02)
PROC: 3E073PZ Introduction of Platelet Inhibitor into Coronary Artery, Percutaneous Approach (ICD-10-PCS; 2019-11-02)
DX: I21.19 ST elevation (STEMI) myocardial infarction involving other coronary artery of inferior wall (principal); E66.01 Morbid (severe) obesity due to excess calories; F10.10 Alcohol abuse, uncomplicated; F12.10 Cannabis abuse, uncomplicated; F14.10 Cocaine abuse, uncomplicated; I25.10 Atherosclerotic heart disease of native coronary artery without angina pectoris; K22.70 Barrett's esophagus without dysplasia; K76.0 Fatty (change of) liver, not elsewhere classified; Z80.2 Family history of malignant neoplasm of other respiratory and intrathoracic organs; K21.9 Gastro-esophageal reflux disease without esophagitis; Z68.31 Body mass index [BMI] 31.0-31.9, adult; Z79.899 Other long term (current) drug therapy
CPT/HCPCS: 36415; 71045; 76700; 80053; 80061; 80307; 82550; 83036; 83735; 84443; 84484; 85025; 85347; 86705; 86709; 86803; 87340; 92941; 93306; 93458; 99152; 99153; 99406; C1725; C1757; C1769; C1874; C1887; C1892; J1644; J2250; J2405; J3010; J3490; Q9967; G0378; J3246

== ENCOUNTER 2021-02-16 16:50 | Inpatient (IN) | payer SELFPAY ==
[~2021-02-16] VITALS: Ht 162.6 cm; Wt 93.4 kg
[~2021-02-16 16:50] MED LIST: ACET325T9 PO; ASPI-630 PO; ATOR20TA58 PO; DOCU-148 PO; FAMO20TA5 PO; Folic Acid PO; MAG30ORA2 PO; METO25TA4 PO; MULT1TAB92 PO; OMEP20CA16 PO; PRAS10TA9 PO; THIA100T22 PO
--- NOTE | 2021-02-16 16:55 | NUR ---
Patient arrived to room 665 via gurney by EMS from [facility]. Patient A&OX4. VSS. No complaints of pain at this time. The patient, BALDOMERO GROVES, 50 y/o, M admitted by OZIEL REBOLLEDO MD, was given written information regarding hospital policies, unit procedures and contact persons. Valuables were checked and noted. Will continue to monitor. Addendum: 02/16/21 at 1957 by JUAN PABLO GONZALEZ RN Spoke with Dr. Rebolledo & Dr. Luo regarding patient's orders.
[2021-02-16 17:00] VITALS: BP 140/96
[2021-02-16] MEDS ORDERED: ATOR20TA58 PO (18:31)
[2021-02-16] MEDS ORDERED: OMEP40CA7 PO (18:31)
[2021-02-16] MEDS ORDERED: ASPI-886 PO (18:31)
[2021-02-16] MEDS ORDERED: MULT-735 PO (18:31)
[2021-02-16] MEDS ORDERED: PRAS10TA9 PO (18:31)
[2021-02-16] MEDS ORDERED: METO25TA4 PO (18:31)
[2021-02-16 19:30] VITALS: BP 139/69
[2021-02-16] MEDS ORDERED: MORPHINE SULFATE 2 MG/ML INJ. IVP PRN (19:30)
[2021-02-16] MEDS ORDERED: ONDANSETRON PF 4 MG/2 ML VIAL. IVP PRN (19:30)
[2021-02-16] MEDS ORDERED: ACETAMINOPHEN 325 MG TABLET. PO PRN (19:30)
[2021-02-16] MEDS ORDERED: NITROGLYCERIN SUBLINGUAL 0.4 MG BOTTLE OF 25. SL PRN (19:30)
[2021-02-16] MEDS: ATORVASTATIN CALCIUM 20 MG TABLET PO SCH (20:29)
[2021-02-16] MEDS: METOPROLOL TART IMMED RELEASE 25 MG TABLET. PO SCH (20:30)
[2021-02-16 22:53] VITALS: BP 124/64
[2021-02-17] VITALS (17 sets, daily range): BP systolic 105–144; BP diastolic 59–93
[2021-02-17 06:20] LABS: BASO % 1 % (0-3); EOS # 0.2 x10^3/uL (0.0-0.7); EOS % 2 % (0-3); HEMATOCRIT 45.1 % (39.0-53.0); HEMOGLOBIN 15.5 g/dL (13.0-17.5); LYMPH # 1.9 x10^3/uL (1.0-4.8); LYMPH % 31 % (24-48); MEAN CORPUSCULAR HEMOGLOBIN 34 pg (25-35); MEAN CORPUSCULAR HGB CONC 34 g/dL (31-37); MEAN CORPUSCULAR VOLUME 98 fL (79-100); MONO # 0.5 x10^3/uL (0.0-1.1); MONO % 9 % (0-9); NEUT # 3.5 x10^3/uL (1.8-7.7); NEUT % 57 % (31-73); PLATELET COUNT 200 x10^3/uL (140-400); RED BLOOD COUNT 4.58 x10^6/uL (4.30-5.70); RED CELL DISTRIBUTION WIDTH 13.3 % (11.5-14.5); WHITE BLOOD COUNT 6.2 x10^3/uL (4.0-11.0)
[2021-02-17 06:23] LABS: ALBUMIN 3.2 g/dL (3.4-5.0); ALBUMIN/GLOBULIN RATIO 0.9 (1.0-1.7); CALCIUM 8.7 mg/dL (8.5-10.1); GFR 79.4; POTASSIUM 3.9 mmol/L (3.5-5.1); TOTAL BILIRUBIN 0.5 mg/dL (0.2-1.0); TOTAL PROTEIN 6.7 g/dL (6.4-8.2)
[2021-02-17] MEDS: ASPIRIN ENTERIC COATED 81 MG TABLET.DR. PO SCH (08:57)
[2021-02-17] MEDS: METOPROLOL TART IMMED RELEASE 25 MG TABLET. PO SCH ×2 (08:58→21:25)
[2021-02-17] MEDS ORDERED: LIDOCAINE 1% PF 2 ML VIAL. ONE (09:15)
[2021-02-17] MEDS ORDERED: HEPARIN for ARTERIAL LINE 1,500 ML ONE (09:15)
[2021-02-17] MEDS ORDERED: IODIXANOL 320 MG/ML 100 ML VIAL. ONE ×2 (09:15→10:27)
[2021-02-17] MEDS ORDERED: VERAPAMIL 5 MG/2 ML VIAL. ONE (09:26)
[2021-02-17] MEDS ORDERED: NITROGLYCERIN 200 MCG/2 ML SYRINGE FOR CATH/VASC LAB. ONE ×3 (09:26→10:30)
[2021-02-17] MEDS ORDERED: fentaNYL PF VIAL 100 MCG/2 ML VIAL ONE (09:26)
[2021-02-17] MEDS ORDERED: HEPARIN for IV BOLUS 10,000 UNIT/10 ML VIAL. ONE (09:26)
[2021-02-17] MEDS ORDERED: MIDAZOLAM HCL/PF 5 MG/5 ML VIAL. ONE (09:26)
[2021-02-17] MEDS ORDERED: IODIXANOL 320 MG/ML 100 ML VIAL. IART ONE (10:00)
[2021-02-17] MEDS ORDERED: fentaNYL PF VIAL 100 MCG/2 ML VIAL IV ONE (10:00)
[2021-02-17] MEDS ORDERED: MIDAZOLAM HCL/PF 5 MG/5 ML VIAL. IV ONE (10:00)
[2021-02-17] MEDS ORDERED: NITROGLYCERIN 200 MCG/2 ML SYRINGE FOR CATH/VASC LAB. IART ONE (10:00)
[2021-02-17] MEDS ORDERED: HEPARIN for IV BOLUS 10,000 UNIT/10 ML VIAL. IART ONE (10:00)
[2021-02-17] MEDS ORDERED: LIDOCAINE 1% PF 2 ML VIAL. INJ ONE (10:00)
[2021-02-17] MEDS ORDERED: VERAPAMIL 5 MG/2 ML VIAL. IART ONE (10:00)
[2021-02-17] MEDS ORDERED: TIROFIBAN 5MG -0.9% NS 100 ML IV ONE (10:09)
[2021-02-17] MEDS ORDERED: CONTRAST GIVEN. MC PRN (10:15)
[2021-02-17] MEDS ORDERED: HEPARIN for IV BOLUS 10,000 UNIT/10 ML VIAL. IV ONE (10:30)
[2021-02-17] MEDS ORDERED: NITROGLYCERIN 200 MCG/2 ML SYRINGE FOR CATH/VASC LAB. ICAR ONE (10:30)
[2021-02-17] MEDS ORDERED: CLOPIDOGREL BISULFATE 75 MG TABLET ONE (10:33)
[2021-02-17] MEDS ORDERED: CLOPIDOGREL BISULFATE 75 MG TABLET PO ONE (10:45)
[2021-02-17] MEDS: TIROFIBAN 5MG -0.9% NS 100 ML IV PRN ×2 (11:00→13:10)
[2021-02-17] MEDS: MULTIVITAMIN with MINERAL TABLET. PO SCH (11:34)
[2021-02-17] MEDS: PANTOPRAZOLE 40 MG TABLET.DR. PO SCH (11:34)
--- NOTE | 2021-02-17 12:05 | HP ---
DATE OF SERVICE: 02/17/2021 ADMIT DATE: 02/16/2021 HISTORY OF PRESENT ILLNESS: The patient is a 50-year-old male patient who presented to the Emergency Room of [facility] with a complaint of chest pain and shortness of breath. He woke up at around 8:30, he was smoking marijuana with some friends the night before, but did not feel right. He was able to go to sleep and when he woke up around 8:00 on the morning of admission, he felt like he had pain in the bilateral triceps. This pain radiated up into his chest and he began to feel short of breath and became diaphoretic. He took two baby aspirin and decided to come to the Emergency Room. He rated his pain around 8/10 in severity. It lasted until he arrived to the Emergency Room where he was investigated, he had an EKG that did not show any ST segment elevation myocardial infarction and his first set of cardiac enzymes showed troponin to be 1.1 and a troponin I high sensitivity was 1683. He was started on Lovenox and given morphine as well as nitroglycerin and aspirin. His pain subsided and he was seen by the Cardiology team and a decision was made to transfer him to [facility] for possible cardiac catheterization and revascularization. PAST MEDICAL HISTORY: Significant for coronary artery disease status post myocardial infarction, status post stent deployment x 2. He is also known to have hypertension. He also abuses marijuana and cocaine. PAST SURGICAL HISTORY: Significant for coronary angioplasty and stent deployment. ALLERGIES: He has no known drug allergies. MEDICATIONS: He is currently on the following medications: He is on metoprolol tartrate 25 mg twice a day, Protonix 40 mg once a day, aspirin 81 mg once a day. He was also on multivitamin 1 tablet once a day and Effient 10 mg once a day. FAMILY HISTORY: He has one brother who is younger and has hypertension and nephrolithiasis. Father in his 40s due to esophageal cancer. Mother is still alive at age of 67, has lung disease. SOCIAL HISTORY: He is single, never , has no children. He smokes marijuana and his toxic screen showed that he is also using cocaine. He drinks alcohol 3 times a week. He works at [employer]. REVIEW OF SYSTEMS: As per history of present illness. PHYSICAL EXAMINATION: GENERAL: He looked well and was clearly in no apparent respiratory distress. No pallor, jaundice, cyanosis, or thyromegaly. No jugular venous distention. No lower limb edema. VITAL SIGNS: His heart rate was 78, blood pressure was 122/79, temperature was 98.2, respiratory rate was 16 and oxygen saturation was 99% on room air. HEAD, EYES, EARS, NOSE, AND THROAT: Normocephalic, atraumatic. NECK: Supple. HEART: Showed normal first and second heart sounds, no gallop, rub or murmur. CHEST: Clear to auscultation. No crepitation or rhonchi. ABDOMEN: Distended, soft, nontender. NEUROLOGIC: He was grossly intact. LABORATORY DATA: His lab work this morning showed a white cell count of 6200, hemoglobin 15.5, hematocrit 45, MCV 98 and platelet count of 200,000. His prothrombin time, INR and APTT are all normal. His second troponin I was even higher at 2183 and the third one was 2434. His serum sodium 139, potassium 3.9, chloride 105, bicarbonate 26, anion gap of 8, BUN 12, creatinine 1, estimated GFR was 79 mL per minute. His glucose was 92, calcium was 8.7. Total bilirubin and alkaline phosphatase were normal. AST, ALT were slightly elevated. ASSESSMENT AND PLAN: In summary, this is a 50-year-old male patient who presented to the Emergency Room of [facility] and was admitted there with chest pain and non-ST segment elevation myocardial infarction. He was transferred to [facility] to do two more sets of cardiac enzyme and to consult the Cardiology for possible cardiac catheterization and stent deployment. NATANAEL DR: Brittany TID: [id number]
--- NOTE | 2021-02-17 12:30 | NUR ---
SS following for discharge planning. SS reviewed pt chart and discussed with pt RN. Pt is from home and is currently on room air. Cardiology following. Pt had heart cath today. SS will continue to follow for discharge planning.
--- NOTE | 2021-02-17 12:37 | CARD ---
MR#: [id number] Date of Study: 02/17/2021 Ordering Physician: MIRI BOYD, Referring Physician: MIRI BOYD, Tech: RT uLz(R) APPROVED REPORT Technologist: RT Luz(R) Nurse: Ysabel Conner RN Procedure(s) performed: MODERATE SEDATION TIME: 70 MINUTES FLUORO TIME: 12.7 MIN DOSE: 138 GYCM2 CONTRAST: 149CC VISI LHC, Coronary angiography, PCI of the left Lcx INDICATION The indication(s) include : non-STEMI . [facility] Clinical Frailty Scale [facility] Clinical Frailty Scale: Managing Well Heart Failure Heart Failure: No CASE TECHNIQUE IV conscious sedation was used throughout procedure with appropriate monitoring and was performed in the presence of a registered nurse who was an independent trained observer other than the physician p erforming the procedure. During this case, Fluoroscopy and low osmolar contrast were used for imaging . Specimen(s) Removed: N/A Estimated Blood loss: 30 cc's. PROCEDURE NARRATIVE Clinical information: 50-year-old male who presented with typical anginal chest pain and an elevated troponin was brought t o the catheterization laboratory for further evaluation and treatment. Of note, the patient had admi tted to using cocaine and marijuana prior to chest pain starting. Procedure details: The right wrist was prepped and draped in usual sterile fashion. Under 1% lidocaine local anesthesia a 6 Niuean sheath was placed in the right radial artery. Diagnostic angiography was then performed with a 6 Niuean JR4 and JL 3.5 catheters. Left ventricular end-diastolic pressure was obtained with a JL 3.5 catheter and a pullback was performed. Findings: Aorta 120/80 LVEDP 22 mmHg No LV to aortic pullback gradient Coronary angiography: Left main is a large-caliber vessel with mild luminal irregularities LAD is a moderate caliber vessel with a mid 60 to 70% stenosis followed by a more distal 70% stenosis . D1 is a moderate caliber vessel with an ostial 70% stenosis Left circumflex is a moderate caliber nondominant vessel with a proximal thrombotic hazy lesion at th e origin of the first obtuse marginal. OM1 is a moderate caliber vessel with a proximal to mid 40 to 50% stenosis RCA is a large caliber dominant vessel with mild diffuse irregularities in the proximal to mid segmen t with patent mid to distal overlapping stents. RPDA is a moderate caliber vessel with a patent proximal stent extending from the RCA with mild diffu se luminal irregularities Interventional technique: Heparin and tirofiban were used for anticoagulation. Through a 6 Niuean JL 3.5 guide catheter a Prow ater wire was placed in the distal first obtuse marginal. Initial attempts at aspiration thrombectom y were unsuccessful and the lesion was then angioplastied with a 3.0 x 15 mm balloon and then stented with a 3.0 x 18 mm resolute drug-eluting stent. Final angiography demonstrated excellent stent expa nsion with SHELLY-3 flow in the vessel no evidence of guide or wire related complications. [facility] the right radial sheath was removed and hemostasis was achieved via a Terumo radial band. Th e patient received 600 mg of Plavix. No acute complications Conclusion 1. Acute on chronic systolic and diastolic heart failure, LVEDP 22 mmHg 2. Three-vessel coronary artery disease with patent stents in the mid to distal RCA 3. Successful PCI of the ostial/proximal circumflex extending into the obtuse marginal with a 3.0 x 18 mm resolute drug-eluting stent Recommendations Aspirin 81 mg daily Plavix 75 mg daily dietary services manager referral for insurance services Plan for medication initiation on the $4 list with simvastatin. Obtain echocardiogram. Discussed need for abstinence from drug use. Signed by : Joe Hernandez, Electronically Approved : 02/17/2021 12:37:33
[2021-02-17] MEDS: ATORVASTATIN CALCIUM 20 MG TABLET PO SCH (21:25)
[2021-02-18 03:00] VITALS: BP 107/66
[2021-02-18 07:59] VITALS: BP 142/87
[2021-02-18] MEDS ORDERED: CLOPIDOGREL BISULFATE 75 MG TABLET PO SCH (08:00)
[2021-02-18] MEDS: PANTOPRAZOLE 40 MG TABLET.DR. PO SCH (09:10)
[2021-02-18] MEDS: MULTIVITAMIN with MINERAL TABLET. PO SCH (09:10)
[2021-02-18] MEDS: ASPIRIN ENTERIC COATED 81 MG TABLET.DR. PO SCH (09:10)
[2021-02-18] MEDS: METOPROLOL TART IMMED RELEASE 25 MG TABLET. PO SCH (09:10)
--- NOTE | 2021-02-18 11:01 | PDOC ---
CARDIO Progress Notes Date and Time Date of Service 02/18/21 Time of Evaluation 1100 Subjective Subjective: No Chest Pain, No shortness of breath, No Palpitations Vitals Vitals Vital Signs Date Time Temp Pulse Resp B/P (MAP) Pulse Ox O2 Delivery O2 Flow Rate FiO2 02/18/21 09:10 90 142/87 02/18/21 08:00 Room Air 02/18/21 07:59 98.2 16 99 98.2 02/17/21 10:54 2.0 Weight Weight [ ] Input and Output Intake and Output Intake and Output 02/18/21 07:00 Intake Total 1250 ml Balance 1250 ml Intake Oral 1250 ml # Voids 5 Physical Exam HEENT: Neck Supple W Full Motion Chest: Symmetric LUNGS: Clear to Auscultation Heart: RRR Abdomen: Soft N/T Extremities: No Edema Neurology: alert, oriented, follow commands Assessment Assessment 1. Chest pain 2. NSTEMI 3. CAD s/p previous PCI/PIPO to RCA. [facility] revealted 3V CAD with patent previously placed stents in the RCA. S/p successful PCI/PIPO of the ostial/proximal circ extending into the OM 4. Hypertension: Controlled 5. Substance abuse; UDS + cocaine. Admits to marijuana use Recommendations Lipids Echocardiogram Secondary prevention Tailor meds to $4 list due to lack of insurance coverage SS following Risk stratification modification Discussed, encouraged cessation from recreational drug use. Justicifation of Admission Dx: Justifications for Admission: Justification of Admission Dx: Yes MD: Acute NSTEMI MIRI BOYD APRN Feb 18, 2021 11:01
[2021-02-18] MEDS ORDERED: ATOR40TA PO (11:19)
[2021-02-18 11:37] VITALS: BP 129/88
[2021-02-18 11:38] LABS: CHOLESTEROL/HDL RATIO 5.6
--- NOTE | 2021-02-18 12:15 | DS ---
HOSPITAL COURSE: The patient was transferred from [facility] with non-ST segment elevation myocardial infarction and he underwent cardiac catheterization, which showed that the patient has acute on chronic systolic and diastolic congestive heart failure. His left ventricular end-diastolic pressure was 22 mmHg. He has 3-vessel coronary artery disease with patent stents in the mid to distal right coronary artery and he underwent successful PCI of the ostial and proximal circumflex extending into the obtuse marginal with 3 x 18 mm Resolute drug-eluting stent. The drug coordinator recommended aspirin 81 mg once a day, Plavix 75 mg once a day as well as increasing his Lipitor to 40 mg at bedtime. He will have an echocardiogram and he is discharged home to follow as an outpatient. On questioning him this morning, he denied any complaint. PHYSICAL EXAMINATION: GENERAL: When I examined him, he looked well and was clearly in no apparent respiratory distress. There is no pallor, jaundice, cyanosis or thyromegaly. No jugular venous distention. No limb edema. VITAL SIGNS: His heart rate was 90, blood pressure was 142/87, temperature was 98.2, respiratory rate was 16 and oxygen saturation was 99% on room air. HEAD, EYES, EARS, NOSE, AND THROAT: Normocephalic, atraumatic. NECK: Supple. HEART: Normal first and second heart sounds. No gallop, rub or murmur. CHEST: Clear to auscultation. No crepitation or rhonchi. ABDOMEN: Distended, soft, nontender. NEUROLOGIC: He was grossly intact. LABORATORY DATA: His lab work showed a white cell count 6200, hemoglobin 15, hematocrit 45, MCV 98 and platelet count 200,000. His serum sodium was 139, potassium 3.9, chloride 105, bicarbonate 26, anion gap of 8, BUN 12, creatinine 1, estimated GFR was 79 mL per minute. His glucose was 92, calcium was 8.7. Total bilirubin, alkaline phosphatase normal. AST and ALT are slightly elevated. Total protein was 6.7, albumin 3.2. DISCHARGE MEDICATIONS: He was discharged home to continue on atorvastatin 40 mg at bedtime, aspirin 81 mg once a day, metoprolol 25 mg twice a day, multivitamin 1 tablet once a day, omeprazole 40 mg daily and prasugrel 10 mg at bedtime. FINAL DISCHARGE DIAGNOSES: 1. Acute on chronic diastolic and systolic congestive heart failure. 2. Coronary artery disease status post myocardial infarction, status post stent deployment to the right coronary artery and at this time to the left circumflex artery. 3. Hypertension. 4. Hyperlipidemia. 5. Marijuana and cocaine abuse. AUSTEN DR: Brittany TID: [id number]
--- NOTE | 2021-02-18 12:15 | NUR ---
SS following up with discharge planning. SS reviewed pt chart and discussed with pt RN. Pt is currently on room air. Pt had heart cath on 02/17/2021. Self pay. Med Assist following. Discharge order on the chart for home with self care.
[2021-02-18 15:22] VITALS: BP 149/87
--- NOTE | 2021-02-18 16:38 | NUR ---
Discharge Note: BALDOMERO GROVES [address] Discharge instructions and discharge home medications reviewed with Patient and a copy given. All questions have been answered and understanding verbalized. The following instructions and handouts were given: atorvastatin, coronary angioplasty with stent, post cardiac cath instructions. Patient discharged to home with self care via wheelchair.
[2021-02-18] MEDS ORDERED: ATORVASTATIN CALCIUM 40 MG TABLET. PO SCH (21:00)
--- NOTE | 2021-02-19 12:07 | CARD ---
MR#: [id number] Date of Study: 02/18/2021 Ordering Physician: MIRI BOYD, Referring Physician: MIRI BOYD, Tech: CorazonLyn Estes, [facility] APPROVED REPORT EXAM: Two-dimensional and M-mode echocardiogram with Doppler and color Doppler. Other Information Quality : AverageHR: 70bpm INDICATION Cardiac Disease: CAD Non STEMI RISK FACTORS Hypertension 2D DIMENSIONS RVDd3.9 (2.9-3.5cm)Left Atrium(2D)3.7 (1.6-4.0cm) IVSd1.0 (0.7-1.1cm)Aortic Root(2D)3.1 (2.0-3.7cm) LVDd5.5 (3.9-5.9cm)LVOT Diameter2.0 (1.8-2.4cm) PWd0.9 (0.7-1.1cm)LVDs4.6 (2.5-4.0cm) FS (%) 16.2 %SV48.8 ml Aortic Valve AoV Peak Cas.119.1cm/sAoV VTI23.4cm AO Peak GR.5.7mmHgLVOT VTI 15.28cm AO Mean GR.3mmHg Mitral Valve MV E Nohlgyrr75.4cm/sMV E Peak Gr.103mmHg MV DECEL [id number] A Fyjfopak17.9cm/s MV E Mean Gr.2mmHgE/A Ratio2.0 TDI Lateral E' P. V8.30cm/sMedial E' P. V7.21cm/s E/Lateral E'12.0E/Medial E'13.8 Tricuspid Valve TR P. Tzswsnjx135dg/sRAP [id number] TR Peak Gr.[id number] Pulmonary Vein S1 Esbnwdom65.8cm/sS2 Pnycqcne61.02cm/s D2 Pzspkewq24.0cm/sPVa [id number] LEFT VENTRICLE The left ventricle is normal size. There is normal left ventricular wall thickness. The systolic func tion is moderately impaired. The Ejection Fraction is estimated at 35%. There is moderate global hypo kinesis of the left ventricle. Transmitral Doppler flow pattern is Grade II-pseudonormal filling poli mics. RIGHT VENTRICLE The right ventricle is borderline dilated. There is normal right ventricular wall thickness. The righ t ventricular systolic function is normal. ATRIA The left atrium is borderline dilated. The right atrium size is normal. The interatrial septum is int act with no evidence for an atrial septal defect or patent foramen ovale as noted on 2-D or Doppler i maging. AORTIC VALVE The aortic valve is normal in structure and function. Doppler and Color Flow revealed no significant aortic regurgitation. There is no significant aortic valvular stenosis. Calculated aortic valve area is 2.31 cm2 with maximum pressure gradient of 6 mmHg and mean pressure gradient of 3 mmHg. MITRAL VALVE The mitral valve is normal in structure and function. There is no evidence of mitral valve prolapse. There is no mitral valve stenosis. Doppler and Color-flow revealed trace mitral regurgitation. TRICUSPID VALVE The tricuspid valve is normal in structure and function. Doppler and Color Flow revealed trace tricus pid regurgitation with an estimated PAP of 31 mmHg. There is no tricuspid valve stenosis. PULMONIC VALVE The pulmonic valve is not well visualized. Doppler and Color Flow revealed no pulmonic valvular regur gitation. GREAT VESSELS The aortic root is normal in size. The IVC is normal in size and collapses >50% with inspiration. PERICARDIAL EFFUSION There is no evidence of significant pericardial effusion. Critical Notification Critical Value: No <Conclusion> The left ventricle is normal size. The systolic function is moderately impaired. The Ejection Fraction is estimated at 35%. There is moderate global hypokinesis of the left ventricle. Doppler and Color Flow revealed no significant aortic regurgitation. There is no significant aortic valvular stenosis. Doppler and Color-flow revealed trace mitral regurgitation. Doppler and Color Flow revealed trace tricuspid regurgitation with an estimated PAP of 31 mmHg. Signed by : Moses Colvin MD Electronically Approved : 02/19/2021 12:07:19
== END 2021-02-18 16:35 | disposition home or self-care (01) | DRG 246 ==
LOC: 6 SOUTH 16:50
PROVIDERS: ADMIT Internal Medicine; ATTEND Internal Medicine
PROC: 027034Z Dilation of Coronary Artery, One Artery with Drug-eluting Intraluminal Device, Percutaneous Approach (ICD-10-PCS; principal; 2021-02-17)
PROC: 4A023N7 Measurement of Cardiac Sampling and Pressure, Left Heart, Percutaneous Approach (ICD-10-PCS; 2021-02-17)
PROC: B211YZZ Fluoroscopy of Multiple Coronary Arteries using Other Contrast (ICD-10-PCS; 2021-02-17)
PROC: 3E033PZ Introduction of Platelet Inhibitor into Peripheral Vein, Percutaneous Approach (ICD-10-PCS; 2021-02-17)
DX: I21.4 Non-ST elevation (NSTEMI) myocardial infarction (principal); I50.43 Acute on chronic combined systolic (congestive) and diastolic (congestive) heart failure; E78.5 Hyperlipidemia, unspecified; F12.10 Cannabis abuse, uncomplicated; F14.10 Cocaine abuse, uncomplicated; I11.0 Hypertensive heart disease with heart failure; I25.10 Atherosclerotic heart disease of native coronary artery without angina pectoris; I25.2 Old myocardial infarction; Z80.0 Family history of malignant neoplasm of digestive organs; Z82.49 Family history of ischemic heart disease and other diseases of the circulatory system; Z95.5 Presence of coronary angioplasty implant and graft
CPT/HCPCS: 36415; 37184; 80053; 80061; 84484; 85025; 85610; 85730; 92928; 93306; 93458; 99152; 99153; C1725; C1757; C1874; C1894; J1644; J1650; J2250; J3010; J3490; Q9967; G0378; J3246